=== PATIENT | female | born 1960 ===

== ENCOUNTER 2016-10-15 23:20 | Inpatient (IN) ==
--- NOTE | 2016-10-15 23:52 | Emergency Department Note ---
Arrival - Arrival Chief Complaint: Upper Respiratory ED Nursing Triage Note: C/O Nonproductive cough/low grade fever. Onset last week "sometime" Pt was transferred from [facility] for further evaluation/admission for pneumonia Mode of Arrival: Stretcher Source: Patient Time Seen by Provider: 10/15/16 23:49 - History of Present Illness HPI Narrative: This 55-year-old female presents with a one-month history of dry cough that was nonproductive without chills or fever. The patient also denies any night sweats, hemoptysis, or weight loss. She was seen today at [facility] where she presented with persistent cough and weakness after being begun on antibiotics as an outpatient 4 days previously for perceived pneumonia. At [facility] she revealed a right upper lobe mass with postobstructive pneumonia and for that reason was transferred here for further workup. Currently patient is in stable condition. Onset (ago): month(s) (Patient presents 1 month post onset of symptoms) Date of Last Menstrual Period: Hysterectomy Allergies/Adverse Reactions: Allergies Allergy/AdvReac Type Severity Reaction Status Date / Time hydrocodone Allergy Intermediate RASH Verified 10/15/16 23:25 levofloxacin [From Levaquin] Allergy Intermediate RASH Verified 10/15/16 23:25 Home Medications: Home Medications Medication Instructions Recorded Confirmed Type Clopidogrel [Plavix] 75 mg PO DAILY 10/15/16 10/15/16 History Insulin Detemir [Levemir] 50 unit SUBCUT BEDTIME 10/15/16 10/15/16 History Lisinopril 20 mg PO DAILY 10/15/16 10/15/16 History Simvastatin 20 mg PO DAILY 10/15/16 10/15/16 History glipiZIDE [Glipizide Xl] 10 mg PO DAILY 10/15/16 10/15/16 History Review of System - Review of System 12 point system: reviewed and no additional remarkable complaints except as stated - Review of System Constitutional: Present: as per HPI Respiratory: Present: as per HPI Medical,Surgical,& Family Hx - Medical History Cardio: History of: Hypertension - Social History Smoking Status: Never smoker Frequency of Alcohol Use: None Type of Drug Use: None Exam Physical Examination: GENERAL: Well developed, well nourished [place] female in no acute distress. HEENT: Normocephalic. No trauma. Moist mucous membranes. EOMI. PERRLA. ENT NML NECK: Supple. No adenopathy. CARDIAC: Regular. No murmurs. Heart rate 93 CHEST: Expiratory rhonchi anteriorly. No respiratory distress. O2 sat 90% ABDOMEN: Soft. Nontender. Active bowel sounds. EXTREMITIES: No trauma. Normal ROM. No pedal edema. SKIN: No diaphoresis. No rash. NEURO: Alert. Neuro intact no focal deficits. Vital Signs: Vital Signs Temperature 99.1 F 10/15/16 23:20 Pulse Rate 89 10/15/16 23:41 Respiratory Rate 20 10/15/16 23:41 Blood Pressure 136/69 10/15/16 23:41 O2 Sat by Pulse Oximetry 98 10/15/16 23:41 Course - Reevaluation(s) Reevaluation #1: Patient expectant of admission - Consultations Consultation #1: Discussed with hospitalist service who will admit for further evaluation and treatment. Results - Labs Labs: Lab per [facility] hematocrit 33, white count 10,300 sodium 137, potassium 5.1, creatinine 1.9, BUN 27, glucose 201 - Diagnostic Findings Procedure: Chest x-ray: image reviewed by me, report reviewed by me (Per [facility] is a masslike area of increased density in the right upper lobe medially adjacent to the mediastinum and abutting the pleura), CT - chest: image reviewed by me, report reviewed by me (Medial right upper lobe apical paramediastinal density, lung carcinoma versus pneumonia) Disposition Clinical Impression: Right upper lobe mass Case discussed with: patient, patient's family Disposition: Still a Patient Condition: Guarded Time of Disposition: 23:58
[2016-10-16] MEDS ORDERED: GLUCAGON 1 MG VIAL IM PRN (00:26)
[2016-10-16] MEDS ORDERED: ALBUTEROL/IPRATROPIUM 3 ML NEB RESP TX PRN ×2 (00:26→17:52)
[2016-10-16] MEDS ORDERED: DEXTROSE 50% 25 GM/50 ML SYRINGE IV PRN (00:26)
--- NOTE | 2016-10-16 00:36 | Hospitalist History & Physical ---
Assessment and Plan (1) Pneumonia Status: Acute Current Visit: Yes (2) Lung mass Status: Acute Current Visit: Yes (3) Diabetes Status: Acute Current Visit: Yes (4) Hypertension Status: Acute Assessment and plan: Our plan for this patient will be admitting her to our service started on IV antibiotics patient has a allergy to penicillin and Levaquin. Continue home meds as appropriate. Monitor her sugars before meals and at bedtime. Will consult pulmonary in the morning for their evaluation. Check a chest x-ray in the morning. Current Visit: Yes History of Present Illness Chief complaint: Shortness of breath History of present illness: Ms. Irwin is a 55 year old female with past medical history significant for diabetes and hypertension who is in normal state of health for the past week. Patient developed a cough and shortness of breath and went to [facility]. She was prescribed p.o. doxycycline and sent home. She returned a few days later with the same complaints. Subsequently had a CT scan that showed a masslike area of increased density in the right upper lobe medially adjacent to the mediastinum abutting the pleura. There was some air bronchograms within the mass and a patchy increased density in the adjacent lung parenchymal. Patient was subsequently sent to our hospital for further evaluation I was consulted to admit her through the emergency room. Home Medications Medication Instructions Recorded Confirmed Type Clopidogrel [Plavix] 75 mg PO DAILY 10/15/16 10/15/16 History Insulin Detemir [Levemir] 50 unit SUBCUT BEDTIME 10/15/16 10/15/16 History Lisinopril 20 mg PO DAILY 10/15/16 10/15/16 History Simvastatin 20 mg PO DAILY 10/15/16 10/15/16 History glipiZIDE [Glipizide Xl] 10 mg PO DAILY 10/15/16 10/15/16 History Allergies Allergy/AdvReac Type Severity Reaction Status Date / Time hydrocodone Allergy Intermediate RASH Verified 10/15/16 23:25 levofloxacin [From Levaquin] Allergy Intermediate RASH Verified 10/15/16 23:25 Medical,Surgical,& Family Hx - Medical History Cardio: History of: Hypertension - Surgical History Reproductive Surgeries: Surgical HX of;: Hysterectomy - Family History Family History: Reports;: Family Diabetes, Family Stroke - Social History Smoking Status: Never smoker Frequency of Alcohol Use: None Type of Drug Use: None 12 point system: reviewed and no additional remarkable complaints except as stated Exam - Constitutional Vitals: Period Temp Pulse Resp BP Sys/Blood Pulse Ox Last 24 Hr 99.1 F-99.1 F 89-93 18-20 123-136/67-69 90-99 General appearance: normal weight - Head Head exam: Present: normal inspection - Eye Eye exam: Present: EOMI Pupils: Present: TG - ENT ENT exam: Present: normal exam - Neck Neck exam: Present: normal inspection - Respiratory Respiratory exam: Present: clear to auscultation bilaterally - Cardiovascular Cardiovascular exam: Present: regular rate and rhythm - GI/Abdominal GI/Abdominal exam: Present: normal bowel sounds - Extremities Exam Extremities exam: Present: normal inspection - Back Exam Back exam: Present: normal inspection - Neurological Exam Neurological exam: Present: alert, oriented X3 - Psychiatric Psychiatric exam: Present: normal affect, normal mood - Skin Skin exam: Present: normal color Results - Labs Labs: Labs from [facility] displayed white count of 10.3 hemoglobin 10.7 hematocrit 33.7 platelets 46 BUN 27 include sodium 137 potassium 5.1 bicarb 29.3 total protein is 8.3 albumin 2.2 total bili 0.1 alk phos 163 SGOT 34 SGPT 26 glucose 201 calcium 8.4 chloride 101 creatinine 1.9 lactate acid 1.2 chest x- ray mediastinal right upper lobe a couple paramediastinal increased density lung carcinoma versus pneumonia CT scan showed a medial right upper lobe paramediastinal mass with patchy adjacent parenchymal densities some of which represent may represent pneumonia although suspicious for lung carcinoma
[2016-10-16] MEDS: SODIUM CHLORIDE 0.9% 1,000 ML IV SCH ×2 (02:10→17:04)
[2016-10-16] MEDS ORDERED: AZITHROMYCIN INJ 500 MG in SODIUM CHLORIDE 0.9% 250 ML IV SCH (03:00)
--- NOTE | 2016-10-16 07:53 | XRay Report ---
History short of breath Comparison 10/14/2016 The heart is at the upper range normal in size The lungs are under aerated 6 cm rounded the density in the is superior medial right lung apex appears to be more prominent than on the prior study although some of this could be due to differences in technique. no new areas of more focal consolidation on the left seen. Impression: 1. Apparent increase in right apical mass or rounded consolidated infiltrate could be due to differences in positioning. Close clinical correlation and short-term follow-up is necessary 2. Mildly increasing hypoaeration changes in the lung bases PROCEDURE INTERPRETED AT [facility] DEPARTMENT OF RADIOLOGY Final Report Signed by: Dr. Delma Mendieta
[2016-10-16 07:56] LABS: Basophils % 0.3 % (0.0-0.8); Eosinophils # 0.2 10*3/uL (0.0-0.87); Eosinophils % 2.5 % (0.00-10.9); Hematocrit 30.5 VOL% (35.7-47.0); Immature Granulocytes % 0.3 %; Immature Granulocytes Absolute 0.03 #; Lymphocytes # 2.2 10*3/uL (1.4-4.0); Lymphocytes % 23.2 % (21.3-54.2); Mean Corpuscular HGB Conc 32.8 GM/DL (32-36); Mean Corpuscular Hemoglobin 29 PG (27-34); Mean Corpuscular Volume 88.9 FL (87-102); Monocytes # 0.8 10*3/uL (0.11-0.8); Monocytes % 8.2 % (1.7-12.7); Neutrophils # 6.2 10*3/uL (1.4-7.4); Neutrophils % 65.5 % (38.7-73.9); Platelet Count 471 T/CUMM (130-400); Red Blood Count 3.43 MC/CUMM (3.8-5.5); Red Cell Distribution Width 12.2 % (9.3-17.3); White Blood Count 9.5 T/CUMM (4-12)
[2016-10-16 08:35] LABS: Bilirubin,Total 0.4 MG/DL (0.2-1.0); Calcium 7.8 MG/DL (8.5-10.1); Osmolality,Calculated 284.5 MOS/KG (273-304); Potassium 4.8 MMOL/L (3.5-5.1); Total Protein 6.4 G/DL (6.4-8.3)
[2016-10-16] MEDS: INSULIN REGULAR 100 UNIT/ML SUBCUT SCH ×4 (09:22→22:07)
[2016-10-16] MEDS: SIMVASTATIN 20 MG TABLET PO SCH (10:35)
[2016-10-16] MEDS: LISINOPRIL 20 MG TABLET PO SCH (10:35)
[2016-10-16] MEDS: CLOPIDOGREL 75 MG TABLET PO SCH (10:35)
[2016-10-16] MEDS: ACETAMINOPHEN 325 MG TABLET PO PRN (17:04)
--- NOTE | 2016-10-16 18:05 | Pulmonology Consult Note ---
History of Present Illness Chief complaint: RUL mass versus infiltrate History of present illness: Ms. Irwin is a 55 year old [place] female whom I been asked to see in pulmonary consultation. This lady is only a fair historian. She was originally hospitalized to [place] with hypoglycemia. She was found to have a right upper lung pneumonia and she was treated with antibiotics and then discharged and given doxycycline and told that she could go back to work in 2 days. She is a dispatcher. She went back to work and felt terrible but hung in there. She had problems with her sugar again and return to [place] help and was eventually transferred here for further evaluation and treatment. She had had a CT of the chest. This patient says that she was in good health prior to the episodes of hypoglycemia. She did not have a cough but she now has a nonproductive cough she does not think she has had fever and chills. The remainder of the review of systems is negative Allergies. Hydrocodone, Levaquin. Both drugs caused rash. Home medicines. Plavix 75 mg daily Levemir insulin 50 units subcu at bedtime. Lisinopril 20 mg daily simvastatin 20 mg daily and glipizide XL 10 mg Past history. High blood pressure. Insulin-dependent diabetes mellitus. High blood pressure. Hyperlipidemia. Carotid artery disease. She said Dr. Demetrius Awad found a bruit in her left carotid artery. She was subsequently referred to Dr. Garrison Garces who treated this with Plavix and felt that this could be watched and he has schedule her for follow-up. Surgical history. Total abdominal hysterectomy by Dr. Ang Social history. The patient never smoked. She does not use alcohol. She works as a dispatcher Family history. Positive for diabetes and strokes Chest x-ray. My impression. Heart size is normal. There is no hilar adenopathy. Pulmonary arteries are normal. There is a right upper lung mass versus an infiltrate with air bronchograms. This is pancaked against the mediastinum. CT of the chest. My impression. Right upper lung dense infiltrate versus a mass with air bronchograms. There is some surrounding faint areas of infiltrate. CT arteriograms of the neck done 03/03/2016 showed. 1. No evidence of significant stenosis or atherosclerotic disease within either of the internal carotid arteries. 2. Incidental moderate to severe stenosis at the proximal left external carotid artery. 3. Nonspecific noncalcified 0.7 cm nodule within the right upper lung. Although this may be post infectious/inflammatory or evidence of prior granulomatous disease, there is no prior for comparison, and malignancy is not excluded. Consider a short followup dedicated chest CT with IV contrast in 2-3 months to assess for stability. I have reviewed this film. This nodule is peripheral in the lesion we are concerned about his medial. I did not think these are related. White blood cell count is 9565.5 623.2 lymphocytes. H&H is 10.0/30.5 with normal indices and red blood cell distribution with. Platelets are 471,000. Electrolytes are normal. Creatinine is elevated at 1.60 with a BUN of 26. Liver function tests are normal except for a mild elevation of alkaline Ed[place] 149. Total protein is low normal at 6.4 albumin is low at 2.0 and globulins are 4.4 Physical exam. Vital signs. See below. Afebrile Psychiatric. Oriented 3. Cooperative. Fair historian. General. No distress. Comfortable. Has to suppress cough. Face. Symmetrical. No edema of the lips or tongue. Neck. Symmetrical. No meningismus. Lymphatics. No submandibular cervical supraclavicular or epitrochlear adenopathy. Neurologic. Cranial nerves are intact. Long track motor functions intact. Sensory exam was not done. Gait was not tested. Chest. Clear. Patient has to suppress the urge to cough when she takes a deep breath and when she exhales forcefully. Heart. No murmur rub or gallop Abdomen. Nondistended. Positive bowel sounds and rectal deferred Extremities. No clubbing and no edema Venous exam of the neck upper extremities lower extremities are normal. Arterial. Carotids are decreased especially on the left. Upper extremity pulses are palpable. Lower extremity pulses were not palpable. No evidence of lower extremity ischemia. Skin. No cancers or infectious lesions of the face hands or lower extremities. No other areas were examined. The remainder the physical exam is noncontributory. Impression. 1. Past history of 0.7 cm peripheral nodule in right upper lung. Do not believe this is related to patient's present problem 2. Right upper lung medial dense infiltrate versus mass with air bronchograms. 3. History of external carotid artery lesions. Taking Plavix to treat this. Previous evaluation by Dr. Stockton 4. Insulin-dependent diabetes mellitus 5. High blood pressure 6. Hyperlipidemia Plan. 1. We will hold Plavix for 5 days. If the lesion in the right upper lung has not resolved we will evaluate patient with fiberoptic bronchoscopy under fluoroscopy. That will be next Thursday. 2. Meropenem. Cleocin. 3. Cold agglutinins. 4. Legionella titer 5. Sputum for Gram stain culture and sensitivity 6. Follow-up chest x-ray on Thursday and Thursday 7. QuantiFERON 8. Mucinex 600 mg p.o. twice daily 9. Tessalon Perles to help suppress nonproductive cough 10. Carotid ultrasounds 11. Inhalation therapy Home Medications Medication Instructions Recorded Confirmed Type Clopidogrel [Plavix] 75 mg PO DAILY 10/15/16 10/15/16 History Insulin Detemir [Levemir] 50 unit SUBCUT BEDTIME 10/15/16 10/15/16 History Lisinopril 20 mg PO DAILY 10/15/16 10/15/16 History Simvastatin 20 mg PO DAILY 10/15/16 10/15/16 History glipiZIDE [Glipizide Xl] 10 mg PO DAILY 10/15/16 10/15/16 History Allergies Allergy/AdvReac Type Severity Reaction Status Date / Time hydrocodone Allergy Intermediate RASH Verified 10/15/16 23:25 levofloxacin [From Levaquin] Allergy Intermediate RASH Verified 10/15/16 23:25 Exam (Pulmonay) H&P - Constitutional Vitals: Period Temp Pulse Resp BP Sys/Blood Pulse Ox Last 24 Hr 96.3 F-99.1 F 78-94 16-22 113-143/66-78 90-99 Medical,Surgical,& Family Hx - Medical History Cardio: History of: Hypertension Endocrine: History of: Diabetes Mellitus (IDDM) Respiratory: History of: Pneumonia - Surgical History Reproductive Surgeries: Surgical HX of;: Hysterectomy - Family History Family History: Reports;: Family Diabetes, Family Stroke - Social History Smoking Status: Never smoker Frequency of Alcohol Use: None Type of Drug Use: None Results - Labs CBC & BMP: 10/16/16 07:11 10/16/16 07:11
[2016-10-16] MEDS: ALBUTEROL/IPRATROPIUM 3 ML NEB RESP TX SCH (19:25)
[2016-10-16] MEDS: CLINDAMYCIN INJ 300 MG in PREMIX 1 EACH IV SCH (20:59)
[2016-10-16] MEDS: BENZONATATE 100 MG CAPSULE PO SCH (20:59)
[2016-10-16] MEDS: MEROPENEM 1,000 MG in SODIUM CHLORIDE 0.9% 100 ML IV SCH (21:43)
[2016-10-17] MEDS: ALBUTEROL/IPRATROPIUM 3 ML NEB RESP TX SCH ×4 (01:11→19:20)
[2016-10-17] MEDS: CLINDAMYCIN INJ 300 MG in PREMIX 1 EACH IV SCH ×4 (01:20→20:55)
[2016-10-17 06:26] LABS: Calcium 7.9 MG/DL (8.5-10.1); Magnesium 1.9 MG/DL (1.8-2.4); Osmolality,Calculated 281.4 MOS/KG (273-304); Potassium 4.7 MMOL/L (3.5-5.1)
[2016-10-17] MEDS: INSULIN REGULAR 100 UNIT/ML SUBCUT SCH ×4 (08:02→20:56)
--- NOTE | 2016-10-17 08:08 | Ultrasound Report ---
History is coronary artery disease Grayscale, spectral Doppler, and color flow analysis performed and interpreted There is a mild amount of soft plaque in the proximal right ICA and moderate soft and partially calcified plaque on the left Maximum systolic velocities are 88 on the right and 169 on the left Peak systolic ratios are 1.0 on the right and 1.8 on the left. There is mild spectral broadening on the left. There is antegrade flow in both vertebral arteries NASCET criteria utilized Impression: 1. Findings very weakly suggestive of a 50-60% diameter stenosis on the left. Correlation with MRA suggested 2. Less than 50% diameter stenosis the proximal right ICA PROCEDURE INTERPRETED AT [facility] DEPARTMENT OF RADIOLOGY Final Report Signed by: Dr. Delma Mendieta
[2016-10-17] MEDS: SODIUM CHLORIDE 0.9% 1,000 ML IV SCH ×2 (09:35→20:57)
[2016-10-17] MEDS: LISINOPRIL 20 MG TABLET PO SCH (09:36)
[2016-10-17] MEDS: BENZONATATE 100 MG CAPSULE PO SCH ×3 (09:36→20:53)
--- NOTE | 2016-10-17 09:54 | XRay Report ---
XR chest 2V Indication: Pneumonia versus mass. Chest 2 views: Comparison yesterday shows continued opacification of the right pulmonary apex. Lungs are somewhat better inflated but there is persistent mild hypoinflation present. Right perihilar atelectasis, normal heart size and mediastinal contour stable. Impression: Persistent opacification right pulmonary apex, either infection or mass. PROCEDURE INTERPRETED AT [facility] DEPARTMENT OF RADIOLOGY Final Report Signed by: Gilbert Grier M.D.
[2016-10-17] MEDS: MEROPENEM 1,000 MG in SODIUM CHLORIDE 0.9% 100 ML IV SCH ×2 (10:00→21:44)
[2016-10-17] MEDS: SIMVASTATIN 20 MG TABLET PO SCH (10:43)
--- NOTE | 2016-10-17 11:18 | Pulmonology Progress Note ---
Pulmonary - PN: Subj Interval history: Doe Alvarado, [facility] acting as scribe for Dr. Ari Sandhu Ms. Irwin is a 55-year-old female who we saw in initial pulmonary consultation on 10/16/2016. At that time, our impressions were: 1. Past history of 0.7 cm peripheral nodule in right upper lung. Do not believe this is related to patient's present problem 2. Right upper lung medial dense infiltrate versus mass with air bronchograms. 3. History of external carotid artery lesions. Taking Plavix to treat this. Previous evaluation by Dr. Stockton 4. Insulin-dependent diabetes mellitus 5. High blood pressure 6. Hyperlipidemia 10/17/2016. Ms. Irwin was seen today along with Ozzie Chong RN. Patient's chest x-ray shows that her presumed right upper lung abnormality appears to be improving. This highly favors it being a pneumonia. Nonetheless, she is scheduled for fiberoptic bronchoscopy on Thursday. Her Plavix is on hold in anticipation of this. She is scheduled for repeat chest x-ray on Thursday. Cold agglutinins are negative. Legionella is pending. She is afebrile. Carotid ultrasound done 10/17/2016 showed findings very weakly suggestive of 50-60% diameter stenosis on the left and less than 50% diameter stenosis of the right proximal ICA. MRA was suggested for correlation of findings on the left. This is followed as an outpatient by Dr. Stockton. QuantiFERON is pending. Sputum for Gram stain, culture sensitivity is pending. Medications have been reviewed. We made no changes today. Labs been reviewed. Creatinine 1.40, BUN 20, electrolytes are normal, calcium is low at 7.9. Vitamin D level has been ordered. Magnesium is normal at 1.9. Exam (Progress Note) - Constitutional Vitals: Period Temp Pulse Resp BP Sys/Blood Pulse Ox Last 24 Hr 96.3 F-97.7 F 74-85 18-20 110-143/51-76 96-99 Exam: Chest is clear Heart no gallop Abdomen is nontender and nondistended; bowel sounds positive 4 Lower extremities with nothing to suggest acute deep venous thrombophlebitis Psychiatric oriented 3 Neurologic long-term motor function is intact Plan: Continue present treatment. Chest x-ray on Thursday. Follow-up bronchoscopy scheduled for Thursday. Continue to hold Plavix. Vitamin D level. Follow-up QuantiFERON when available. Follow-up sputum culture and Gram stain when available. See orders. Results - Labs CBC & BMP: 10/16/16 07:11 10/17/16 04:43
[2016-10-17] MEDS: LACTULOSE 20 GM/30 ML UDCUP PO SCH ×3 (12:20→20:55)
--- NOTE | 2016-10-17 15:38 | Hospitalist Progress Note ---
Assessment and Plan (1) Pneumonia Status: Acute Assessment and plan: Appears to be improving. Current Visit: Yes Qualifiers: Pneumonia type: due to unspecified organism Laterality: right Lung location: upper lobe of lung Qualified Code(s): J18.1 - Lobar pneumonia, unspecified organism (2) Lung mass Status: Acute Assessment and plan: Continue to monitor closely with pulmonology. On follow-up x-rays appears that the lesion is getting better which suggest this may be in some type of evidence of infectious process is going on. Continuing to monitor. Current Visit: Yes (3) Diabetes Status: Chronic Current Visit: Yes Qualifiers: Diabetes mellitus type: type 2 (4) Hypertension Status: Chronic Current Visit: Yes Qualifiers: Hypertension type: essential hypertension Qualified Code(s): I10 - Essential (primary) hypertension Hospitalist: Subjective Interval history: The patient is resting comfortably in no acute changes. The chest x-ray findings are improving. No fevers or chills. Exam - Constitutional Vitals: Period Temp Pulse Resp BP Sys/Blood Pulse Ox Last 24 Hr 97.1 F-98.1 F 74-101 18-22 110-143/51-84 96-99 General appearance: normal weight - Head Head exam: Present: normal inspection - ENT ENT exam: Present: normal exam - Respiratory Respiratory exam: Present: clear to auscultation bilaterally - Cardiovascular Cardiovascular exam: Present: regular rate and rhythm - GI/Abdominal GI/Abdominal exam: Present: normal bowel sounds - Extremities Exam Extremities exam: Present: normal inspection - Neurological Exam Neurological exam: Present: alert, oriented X3 - Psychiatric Psychiatric exam: Present: normal affect Results - Labs CBC & BMP: 10/16/16 07:11 10/17/16 04:43
[2016-10-17] MEDS: ACETAMINOPHEN 325 MG TABLET PO PRN (20:54)
[2016-10-17] MEDS: DOCUSATE SODIUM 100 MG CAPSULE PO SCH (20:55)
[2016-10-18] MEDS: ALBUTEROL/IPRATROPIUM 3 ML NEB RESP TX SCH ×4 (00:40→20:20)
[2016-10-18] MEDS: LACTULOSE 20 GM/30 ML UDCUP PO SCH (00:45)
[2016-10-18] MEDS: CLINDAMYCIN INJ 300 MG in PREMIX 1 EACH IV SCH ×4 (02:30→23:11)
[2016-10-18 06:42] LABS: Basophils % 0.3 % (0.0-0.8); Eosinophils # 0.3 10*3/uL (0.0-0.87); Hematocrit 30.9 VOL% (35.7-47.0); Immature Granulocytes % 0.5 %; Immature Granulocytes Absolute 0.07 #; Lymphocytes # 2.1 10*3/uL (1.4-4.0); Lymphocytes % 16.6 % (21.3-54.2); Mean Corpuscular HGB Conc 32.4 GM/DL (32-36); Mean Corpuscular Hemoglobin 29 PG (27-34); Mean Corpuscular Volume 90.4 FL (87-102); Mean Platelet Volume 9.5 FL (9.6-12.0); Monocytes # 0.9 10*3/uL (0.11-0.8); Monocytes % 6.7 % (1.7-12.7); Neutrophils # 9.4 10*3/uL (1.4-7.4); Neutrophils % 73.9 % (38.7-73.9); Platelet Count 464 T/CUMM (130-400); Red Blood Count 3.42 MC/CUMM (3.8-5.5); Red Cell Distribution Width 12.1 % (9.3-17.3); White Blood Count 12.7 T/CUMM (4-12)
[2016-10-18 07:25] LABS: Calcium 7.9 MG/DL (8.5-10.1); Osmolality,Calculated 281.3 MOS/KG (273-304)
[2016-10-18] MEDS ORDERED: AZITHROMYCIN 250 MG TABLET PO SCH (09:00)
[2016-10-18] MEDS: MEROPENEM 1,000 MG in SODIUM CHLORIDE 0.9% 100 ML IV SCH ×2 (09:32→20:16)
[2016-10-18] MEDS: INSULIN REGULAR 100 UNIT/ML SUBCUT SCH ×4 (09:32→21:03)
[2016-10-18] MEDS: LISINOPRIL 20 MG TABLET PO SCH ×2 (09:34→20:17)
[2016-10-18] MEDS: SIMVASTATIN 20 MG TABLET PO SCH (09:35)
[2016-10-18] MEDS: BENZONATATE 100 MG CAPSULE PO SCH ×3 (09:35→20:17)
[2016-10-18] MEDS: DOCUSATE SODIUM 100 MG CAPSULE PO SCH ×2 (09:37→20:14)
--- NOTE | 2016-10-18 10:54 | Pulmonology Progress Note ---
Pulmonary - PN: Subj Interval history: This is a 55-year-old lady that had a right upper lobe opacity on her x-ray. Looks like it is going to be pneumonia. Dr. Hemphill plans to do bronchoscopy Thursday to be sure there is not an underlying mass there. Patient feels better today. Still coughing up some phlegm. No fever. Exam (Progress Note) - Constitutional Vitals: Period Temp Pulse Resp BP Sys/Blood Pulse Ox Last 24 Hr 98.0 F-99.0 F 90-101 18-22 132-161/59-89 95-100 Exam: Patient's afebrile. Alert oriented. Vital signs normal. Pupils react to light. Throat is clear. Neck is supple. Chest reveals a few rales and rhonchi on the right upper lobe. Otherwise lungs clear. Heart normal rate and rhythm no murmurs. Abdomen soft nontender no masses. Extremities no clubbing cyanosis or edema. Calves nontender. Results - Labs CBC & BMP: 10/18/16 06:12 10/18/16 06:12 Lab Results: I have reviewed the past 24 hour labs Assessment and Plan (1) Pneumonia Status: Acute Assessment and plan: It appears that she has a right upper lobe pneumonia. Certainly there could be an underlying mass. Continuing with antibiotics. Plans are for bronchoscopy in a few days. Current Visit: Yes Qualifiers: Pneumonia type: due to unspecified organism Laterality: right Lung location: upper lobe of lung Qualified Code(s): J18.1 - Lobar pneumonia, unspecified organism (2) Lung mass Status: Acute Assessment and plan: Questionable whether there is truly a mass or just consolidated lung. Further evaluation in progress. Current Visit: Yes (3) Diabetes Status: Chronic Assessment and plan: Glucoses well controlled. Current Visit: Yes Qualifiers: Diabetes mellitus type: type 2 (4) Hypertension Status: Chronic Assessment and plan: Systolic blood pressure in the 150s. Fair control. Current Visit: Yes Qualifiers: Hypertension type: essential hypertension Qualified Code(s): I10 - Essential (primary) hypertension
--- NOTE | 2016-10-18 11:40 | Hospitalist Progress Note ---
Assessment and Plan (1) Pneumonia Status: Acute Assessment and plan: She continues on intravenous meropenem and clindamycin. Current Visit: Yes Qualifiers: Pneumonia type: due to unspecified organism Laterality: right Lung location: upper lobe of lung Qualified Code(s): J18.1 - Lobar pneumonia, unspecified organism (2) Lung mass Status: Acute Assessment and plan: She is to undergo bronchoscopy next week for evaluation of right upper lobe lung mass. Current Visit: Yes (3) Diabetes Status: Chronic Assessment and plan: Her glucose today is 194. She continues treatment with sliding scale insulin coverage. Current Visit: Yes Qualifiers: Diabetes mellitus type: type 2 (4) Hypertension Status: Chronic Assessment and plan: Her blood pressure today is 157/89. She continues on her same medications. Current Visit: Yes Qualifiers: Hypertension type: essential hypertension Qualified Code(s): I10 - Essential (primary) hypertension Hospitalist: Subjective Interval history: Patient has a right upper lobe lung mass. It is unclear if this is pneumonia or cancer with postobstructive pneumonia. She continues on intravenous antibiotics. She is scheduled to undergo bronchoscopy next week. Exam - Constitutional Vitals: Period Temp Pulse Resp BP Sys/Blood Pulse Ox Last 24 Hr 98.0 F-99.0 F 90-101 18-22 132-161/59-89 95-100 General appearance: no acute distress - Head Head exam: Present: normal inspection - Neck Neck exam: Present: normal inspection - Respiratory Respiratory exam: Present: clear to auscultation bilaterally - Cardiovascular Cardiovascular exam: Present: regular rate and rhythm - GI/Abdominal GI/Abdominal exam: Present: normal bowel sounds, soft, other (Nontender with no palpable masses or hepatosplenomegaly.) - Extremities Exam Extremities exam: Present: normal inspection - Neurological Exam Neurological exam: Present: alert, oriented X3 - Skin Skin exam: Present: normal color, warm, intact Results - Labs CBC & BMP: 10/18/16 06:12 10/18/16 06:12
[2016-10-18] MEDS: SODIUM CHLORIDE 0.9% 1,000 ML IV SCH ×2 (11:45→17:17)
[2016-10-18] MEDS: BISACODYL 5 MG TABLET PO PRN (14:36)
[2016-10-18] MEDS: ACETAMINOPHEN 325 MG TABLET PO PRN (19:37)
[2016-10-19] MEDS: SODIUM CHLORIDE 0.9% 1,000 ML IV SCH ×2 (00:12→10:46)
[2016-10-19] MEDS: ALBUTEROL/IPRATROPIUM 3 ML NEB RESP TX SCH ×4 (02:22→19:29)
[2016-10-19] MEDS: CLINDAMYCIN INJ 300 MG in PREMIX 1 EACH IV SCH ×3 (04:43→16:13)
[2016-10-19] MEDS: SIMVASTATIN 20 MG TABLET PO SCH (08:41)
[2016-10-19] MEDS: LISINOPRIL 20 MG TABLET PO SCH ×2 (08:41→20:46)
[2016-10-19] MEDS: INSULIN REGULAR 100 UNIT/ML SUBCUT SCH ×4 (08:42→20:50)
[2016-10-19] MEDS: BENZONATATE 100 MG CAPSULE PO SCH ×3 (08:42→20:46)
[2016-10-19] MEDS: DOCUSATE SODIUM 100 MG CAPSULE PO SCH ×2 (08:42→20:50)
[2016-10-19] MEDS: MEROPENEM 1,000 MG in SODIUM CHLORIDE 0.9% 100 ML IV SCH ×2 (08:43→20:47)
--- NOTE | 2016-10-19 10:45 | Pulmonology Progress Note ---
Pulmonary - PN: Subj Interval history: This is a 55-year-old lady that had a right upper lobe opacity on her x-ray. Looks like it is going to be pneumonia. Dr. Sandhu plans to do bronchoscopy Thursday to be sure there is not an underlying mass there. Patient feels better today. Still coughing up some phlegm. No fever. 10/19/2016 patient feeling better. Still has a localized wheeze in the right upper lobe. Plans will be for bronchoscopy on Thursday. Exam (Progress Note) - Constitutional Vitals: Period Temp Pulse Resp BP Sys/Blood Pulse Ox Last 24 Hr 97.4 F-100.8 F 86-121 14-20 129-173/58-84 95-100 Exam: Patient's afebrile. Alert oriented. Vital signs normal. Pupils react to light. Throat is clear. Neck is supple. Chest reveals a few rales and rhonchi on the right upper lobe. I do hear a localized wheeze in the right upper lobe. Otherwise lungs clear. Heart normal rate and rhythm no murmurs. Abdomen soft nontender no masses. Extremities no clubbing cyanosis or edema. Calves nontender. Results - Labs CBC & BMP: 10/18/16 06:12 10/18/16 06:12 Lab Results: I have reviewed the past 24 hour labs Assessment and Plan (1) Pneumonia Status: Acute Assessment and plan: It appears that she has a right upper lobe pneumonia. Certainly there could be an underlying mass. Continuing with antibiotics. Plans are for bronchoscopy in a few days. 10/19/[address] Sandhu plans to do bronchoscopy to stay for evaluation of that area. Current Visit: Yes Qualifiers: Pneumonia type: due to unspecified organism Laterality: right Lung location: upper lobe of lung Qualified Code(s): J18.1 - Lobar pneumonia, unspecified organism (2) Lung mass Status: Acute Assessment and plan: Questionable whether there is truly a mass or just consolidated lung. Further evaluation in progress. Current Visit: Yes (3) Diabetes Status: Chronic Assessment and plan: Glucoses well controlled. 10/19/2016 glucoses a little bit low at times. Hospitalists are following that Current Visit: Yes Qualifiers: Diabetes mellitus type: type 2 (4) Hypertension Status: Chronic Assessment and plan: Systolic blood pressure in the 150s. Fair control. 10/19/2016 blood pressures are fairly well controlled. Current Visit: Yes Qualifiers: Hypertension type: essential hypertension Qualified Code(s): I10 - Essential (primary) hypertension
--- NOTE | 2016-10-19 13:01 | Hospitalist Progress Note ---
Assessment and Plan (1) Pneumonia Status: Acute Assessment and plan: Appears to be improving. Bronchoscope scheduled this week. Current Visit: Yes Qualifiers: Pneumonia type: due to unspecified organism Laterality: right Lung location: upper lobe of lung Qualified Code(s): J18.1 - Lobar pneumonia, unspecified organism (2) Lung mass Status: Acute Assessment and plan: Continue to monitor closely with pulmonology. On follow-up x-rays appears that the lesion is getting better which suggest this may be in some type of evidence of infectious process is going on. Continuing to monitor. Current Visit: Yes (3) Diabetes Status: Chronic Current Visit: Yes Qualifiers: Diabetes mellitus type: type 2 (4) Hypertension Status: Chronic Current Visit: Yes Qualifiers: Hypertension type: essential hypertension Qualified Code(s): I10 - Essential (primary) hypertension Hospitalist: Subjective Interval history: Patient is resting comfortably. No fevers or chills. Patient is scheduled to have a bronch this week. Sputum cultures have been negative thus far. Exam - Constitutional Vitals: Period Temp Pulse Resp BP Sys/Blood Pulse Ox Last 24 Hr 97.7 F-100.8 F 86-121 14-20 129-173/58-80 95-100 General appearance: normal weight - Head Head exam: Present: normal inspection - Eye Eye exam: Present: EOMI - Neck Neck exam: Present: normal inspection - Respiratory Respiratory exam: Present: clear to auscultation bilaterally - Cardiovascular Cardiovascular exam: Present: regular rate and rhythm - GI/Abdominal GI/Abdominal exam: Present: normal bowel sounds - Extremities Exam Extremities exam: Present: normal inspection - Neurological Exam Neurological exam: Present: alert, oriented X3, CN II-XII intact - Psychiatric Psychiatric exam: Present: normal affect Results - Labs CBC & BMP: 10/18/16 06:12 10/18/16 06:12
[2016-10-19] MEDS: ACETAMINOPHEN 325 MG TABLET PO PRN (20:00)
[2016-10-20] MEDS: SODIUM CHLORIDE 0.9% 1,000 ML IV SCH ×3 (00:50→17:31)
[2016-10-20] MEDS: CLINDAMYCIN INJ 300 MG in PREMIX 1 EACH IV SCH ×5 (00:51→22:43)
[2016-10-20] MEDS: ALBUTEROL/IPRATROPIUM 3 ML NEB RESP TX SCH ×4 (00:52→18:55)
[2016-10-20] MEDS: ACETAMINOPHEN 325 MG TABLET PO PRN ×2 (06:02→20:28)
[2016-10-20 06:12] LABS: INR 1.1; PT Patient Result 11.2 SECS
[2016-10-20 06:19] LABS: Partial Thromboplastin Time 49.9 SECS (0-40)
--- NOTE | 2016-10-20 08:30 | XRay Report ---
History: Abnormal chest x-ray. Pneumonia versus right upper lobe mass Date: 10/20/2016 Study: Chest x-ray PA and lateral Comparison exam: October 17, 2016 The cardiac silhouette is upper normal in size. There is no pulmonary vascular engorgement. There is no new mediastinal mass. The patchy and hazy right upper lobe pneumonia has mildly worsened. The lungs are otherwise unchanged. There is no gross pleural effusion. Osseous structures are unchanged. Impression: Worsening right upper lobe pneumonia compared to the previous study. Underlying mass cannot be excluded; radiographic follow-up to resolution is advised PROCEDURE INTERPRETED AT [facility] DEPARTMENT OF RADIOLOGY Final Report Signed by: Dr. Rowena Zaldivar
[2016-10-20] MEDS: DOCUSATE SODIUM 100 MG CAPSULE PO SCH ×2 (08:48→20:28)
[2016-10-20] MEDS: INSULIN REGULAR 100 UNIT/ML SUBCUT SCH ×4 (08:48→20:29)
[2016-10-20] MEDS: LISINOPRIL 20 MG TABLET PO SCH ×2 (08:49→20:28)
[2016-10-20] MEDS: BENZONATATE 100 MG CAPSULE PO SCH ×3 (08:49→20:28)
[2016-10-20] MEDS: SIMVASTATIN 20 MG TABLET PO SCH (08:49)
[2016-10-20] MEDS: MEROPENEM 1,000 MG in SODIUM CHLORIDE 0.9% 100 ML IV SCH ×2 (09:27→20:28)
[2016-10-20 09:32] LABS: Basophils % 0.2 % (0.0-0.8); Eosinophils # 0.4 10*3/uL (0.0-0.87); Eosinophils % 2.3 % (0.00-10.9); Hematocrit 27.6 VOL% (35.7-47.0); Hemoglobin 8.9 GM/DL (12.0-16.0); Immature Granulocytes % 0.6 %; Immature Granulocytes Absolute 0.09 #; Lymphocytes # 1.6 10*3/uL (1.4-4.0); Lymphocytes % 10.6 % (21.3-54.2); Mean Corpuscular HGB Conc 32.2 GM/DL (32-36); Mean Corpuscular Hemoglobin 29 PG (27-34); Mean Corpuscular Volume 89.3 FL (87-102); Mean Platelet Volume 10.1 FL (9.6-12.0); Monocytes # 0.9 10*3/uL (0.11-0.8); Monocytes % 5.6 % (1.7-12.7); Neutrophils # 12.5 10*3/uL (1.4-7.4); Neutrophils % 80.7 % (38.7-73.9); Platelet Count 436 T/CUMM (130-400); Red Blood Count 3.09 MC/CUMM (3.8-5.5); White Blood Count 15.4 T/CUMM (4-12)
[2016-10-20 09:46] LABS: Osmolality,Calculated 274.5 MOS/KG (273-304); Potassium 4.5 MMOL/L (3.5-5.1)
--- NOTE | 2016-10-20 11:02 | Pulmonology Progress Note ---
Pulmonary - PN: Subj Interval history: Doe Alvarado, [facility], acting as scribe for Dr. Ari Sandhu Ms. Irwin is a 55-year-old female who we saw in initial pulmonary consultation on 10/16/2016. At that time, our impressions were: 1. Past history of 0.7 cm peripheral nodule in right upper lung. Do not believe this is related to patient's present problem 2. Right upper lung medial dense infiltrate versus mass with air bronchograms. 3. History of external carotid artery lesions. Taking Plavix to treat this. Previous evaluation by Dr. Stockton 4. Insulin-dependent diabetes mellitus 5. High blood pressure 6. Hyperlipidemia 10/17/2016. Ms. Irwin was seen today along with Ozzie Chong RN. Patient's chest x-ray shows that her presumed right upper lung abnormality appears to be improving. This highly favors it being a pneumonia. Nonetheless, she is scheduled for fiberoptic bronchoscopy on Thursday. Her Plavix is on hold in anticipation of this. She is scheduled for repeat chest x-ray on Thursday. Cold agglutinins are negative. Legionella is pending. She is afebrile. Carotid ultrasound done 10/17/2016 showed findings very weakly suggestive of 50-60% diameter stenosis on the left and less than 50% diameter stenosis of the right proximal ICA. MRA was suggested for correlation of findings on the left. This is followed as an outpatient by Dr. Stockton. QuantiFERON is pending. Sputum for Gram stain, culture sensitivity is pending. Medications have been reviewed. We made no changes today. Labs been reviewed. Creatinine 1.40, BUN 20, electrolytes are normal, calcium is low at 7.9. Vitamin D level has been ordered. Magnesium is normal at 1.9. 10/20/2016. The patient was seen today along with Ozzie Chong RN. Last night the patient had a fever of 101.2. This is trended downward since that time. Chest x-ray today is fairly stable. She is plan for fiberoptic bronchoscopy tomorrow. Her Plavix has been on hold in anticipation of bronchoscopy. Overall , she is doing reasonably well. She has not been wanting to get out of bed. We discussed this with her today. Nursing staff has discussed this with her at length. Presently, she is sitting up in the chair at bedside. Cold agglutinins are negative. Legionella is pending. Sputum Gram stain showed few gram-positive cocci in clusters, few gram-positive cocci in pairs and chains, few gram-negative rods, and few gram-positive rods. Sputum culture, however, grew no organisms. QuantiFERON is still pending. Medications have been reviewed. We made no changes. Labs been reviewed. White count was 15,400 with 80.7% segs; H&H 8.9/27.6; platelet count 436,000; INR 1.1; creatinine 1.20, BUN 12, electrolytes are normal; vitamin D level is sufficient at 26.6 Exam (Progress Note) - Constitutional Vitals: Period Temp Pulse Resp BP Sys/Blood Pulse Ox Last 24 Hr 98.2 F-101.2 F 75-105 16-20 135-164/59-82 95-100 Exam: Chest is clear Heart no gallop Abdomen is nontender and nondistended; bowel sounds positive 4 Lower extremities with nothing to suggest acute deep venous thrombophlebitis Psychiatric oriented 3; somewhat flat affect Neurologic long-term motor function is intact Plan: Continue present treatment. Bronchoscopy scheduled for Thursday. Continue to hold Plavix. Follow-up QuantiFERON when available. See orders. Results - Labs CBC & BMP: 10/20/16 05:32 10/20/16 05:32
--- NOTE | 2016-10-20 11:38 | Hospitalist Progress Note ---
Assessment and Plan (1) Pneumonia Status: Acute Assessment and plan: continue with IV antibiotics For Bronch iin am, follow Pulm's recommendations Current Visit: Yes Qualifiers: Pneumonia type: due to unspecified organism Laterality: right Lung location: upper lobe of lung Qualified Code(s): J18.1 - Lobar pneumonia, unspecified organism (2) Lung mass Status: Acute Assessment and plan: Continue to monitor closely with pulmonology. On follow-up x-rays appears that the lesion is getting better which suggest this may be in some type of evidence of infectious process is going on. For Bronch in am Current Visit: Yes (3) Diabetes Status: Chronic Assessment and plan: continue with current regime, will get hbA1c level Current Visit: Yes Qualifiers: Diabetes mellitus type: type 2 (4) Hypertension Status: Chronic Assessment and plan: stable Current Visit: Yes Qualifiers: Hypertension type: essential hypertension Qualified Code(s): I10 - Essential (primary) hypertension Hospitalist: Subjective Interval history: Patient was sleepy, she complains of coughing up of whitish sputum. She spiked a temp of 101.2 yesterday. She is scheduled for a bronchoscopy in am. Exam - Constitutional Vitals: Period Temp Pulse Resp BP Sys/Blood Pulse Ox Last 24 Hr 98.2 F-101.2 F 75-105 16-20 135-164/59-82 95-100 General appearance: no acute distress - Head Head exam: Present: normal inspection - Respiratory Respiratory exam: Present: clear to auscultation bilaterally - Cardiovascular Cardiovascular exam: Present: regular rate and rhythm - GI/Abdominal GI/Abdominal exam: Present: normal bowel sounds - Extremities Exam Extremities exam: Present: normal inspection - Neurological Exam Neurological exam: Present: alert, oriented X3 Results - Labs CBC & BMP: 10/20/16 05:32 10/20/16 05:32 Lab Results: I have reviewed the past 24 hour labs
[2016-10-20 14:21] LABS: TB Ag minue Nil Result 0.01 IU/mL
[2016-10-21] MEDS: ALBUTEROL/IPRATROPIUM 3 ML NEB RESP TX SCH ×4 (00:30→19:07)
[2016-10-21] MEDS: CLINDAMYCIN INJ 300 MG in PREMIX 1 EACH IV SCH ×4 (05:25→22:10)
[2016-10-21] MEDS: SODIUM CHLORIDE 0.9% 1,000 ML IV SCH ×3 (05:27→20:27)
[2016-10-21 06:05] LABS: Basophils # 0.1 10*3/uL (0.0-0.2); Basophils % 0.3 % (0.0-0.8); Eosinophils # 0.4 10*3/uL (0.0-0.87); Eosinophils % 2.2 % (0.00-10.9); Hematocrit 26.2 VOL% (35.7-47.0); Hemoglobin 8.8 GM/DL (12.0-16.0); Immature Granulocytes % 0.6 %; Lymphocytes % 12.3 % (21.3-54.2); Mean Corpuscular HGB Conc 33.6 GM/DL (32-36); Mean Corpuscular Hemoglobin 30 PG (27-34); Mean Corpuscular Volume 88.5 FL (87-102); Mean Platelet Volume 10.1 FL (9.6-12.0); Monocytes % 6.4 % (1.7-12.7); Neutrophils # 12.4 10*3/uL (1.4-7.4); Neutrophils % 78.2 % (38.7-73.9); Platelet Count 432 T/CUMM (130-400); Red Blood Count 2.96 MC/CUMM (3.8-5.5); Red Cell Distribution Width 12.1 % (9.3-17.3); White Blood Count 15.8 T/CUMM (4-12)
[2016-10-21 06:23] LABS: INR 1.3; PT Patient Result 14.1 SECS
[2016-10-21 06:30] LABS: Partial Thromboplastin Time 56.2 SECS (0-40)
[2016-10-21] MEDS ORDERED: diphenhydrAMINE 50 MG/1 ML VIAL IM ONE (07:00)
[2016-10-21] MEDS ORDERED: MEPERIDINE 50 MG/1 ML VIAL IM ONE (07:00)
[2016-10-21] MEDS ORDERED: BENZONATATE 100 MG CAPSULE PO ONE (07:00)
[2016-10-21] MEDS ORDERED: LIDOCAINE 2% VISCOUS 100 ML BOTTLE SWISH/SPIT ONE (07:30)
[2016-10-21] MEDS ORDERED: LIDOCAINE 1% 20 ML VIAL MISC INJ ONE (07:30)
[2016-10-21] MEDS ORDERED: LIDOCAINE 2% 20 ML VIAL RESP TX ONE (07:30)
[2016-10-21] MEDS ORDERED: MIDAZOLAM 2 MG/2 ML VIAL ONE (07:58)
[2016-10-21] MEDS ORDERED: EPINEPHrine 1 MG/ML VIAL ET ONE (08:50)
[2016-10-21] MEDS ORDERED: EPINEPHrine 1 MG/ML VIAL ONE (09:26)
[2016-10-21] MEDS: INSULIN REGULAR 100 UNIT/ML SUBCUT SCH ×4 (10:25→20:24)
--- NOTE | 2016-10-21 11:05 | Event Note ---
In hospital diagnostic and therapeutic fiberoptic bronchoscopy under fluoroscopy. Right upper lung brushes 3 under fluoroscopy. Endobronchial biopsies from the right upper lung 3. Bronchoalveolar lavage of all 3 right upper lung segments. Specimens were sent for pathology, cytology, Gram stain, bacterial cultures, AFB stains and cultures and fungal stains and cultures. This patient presented with a right upper lung mass effect. This is mostly disappeared with treatment of pneumonia. Endobronchial obstruction suspected. Abnormal chest x-ray and abnormal CT of the chest. Small peripheral right upper lung nodule that is separate from the infiltrate and probably is not pathologic. For these reasons the patient's evaluated with fiberoptic bronchoscopy. Vocal cords were normal. Trachea was normal. The nakul was slightly splayed. There was erosive bronchitis in the left upper lung bronchus. See photograph #1 The right upper lung bronchus was erythematous edematous and friable and this involved all 3 subsegments of the right upper lung but was most prominent in the apical segment. There is a good bit of endobronchial edema producing partial stenosis. 3 brushes were obtained under fluoroscopy. These were obtained from the apical segment of the right upper lung. 3 biopsies were taken from the orifice of the apical segment of the right upper lung. Bronchoalveolar lavages were done from the anterior segment and apical segment in the posterior segment. There was a mild amount of bleeding which required dilute epinephrine and iced saline in order to control it. No endobronchial lesions suggestive of cancer was seen in either bronchial tree patient tolerated procedure well. Impression. 1. Resolving right upper lung pneumonia 2. Small peripheral nodule in the right upper lung. Probably benign 3. Erosive slightly edematous bronchitis in the right upper lung and to a lesser degree in the left upper lung. Organism undetermined. 4. Slight splaying of the trachea. Watch for lymphadenopathy. Plan. 1. Check bronchoscopy specimens 2. Follow-up chest X
--- NOTE | 2016-10-21 11:15 | Pulmonology Progress Note ---
Pulmonary - PN: Subj Interval history: Doe Alvarado, [facility], acting as scribe for Dr. Ari Sandhu Ms. Irwin is a 55-year-old female who we saw in initial pulmonary consultation on 10/16/2016. At that time, our impressions were: 1. Past history of 0.7 cm peripheral nodule in right upper lung. Do not believe this is related to patient's present problem 2. Right upper lung medial dense infiltrate versus mass with air bronchograms. 3. History of external carotid artery lesions. Taking Plavix to treat this. Previous evaluation by Dr. Stockton 4. Insulin-dependent diabetes mellitus 5. High blood pressure 6. Hyperlipidemia 10/17/2016. Ms. Irwin was seen today along with Ozzie Chong RN. Patient's chest x-ray shows that her presumed right upper lung abnormality appears to be improving. This highly favors it being a pneumonia. Nonetheless, she is scheduled for fiberoptic bronchoscopy on Thursday. Her Plavix is on hold in anticipation of this. She is scheduled for repeat chest x-ray on Thursday. Cold agglutinins are negative. Legionella is pending. She is afebrile. Carotid ultrasound done 10/17/2016 showed findings very weakly suggestive of 50-60% diameter stenosis on the left and less than 50% diameter stenosis of the right proximal ICA. MRA was suggested for correlation of findings on the left. This is followed as an outpatient by Dr. Stockton. QuantiFERON is pending. Sputum for Gram stain, culture sensitivity is pending. Medications have been reviewed. We made no changes today. Labs been reviewed. Creatinine 1.40, BUN 20, electrolytes are normal, calcium is low at 7.9. Vitamin D level has been ordered. Magnesium is normal at 1.9. 10/20/2016. The patient was seen today along with Ozzie Chong RN. Last night the patient had a fever of 101.2. This is trended downward since that time. Chest x-ray today is fairly stable. She is plan for fiberoptic bronchoscopy tomorrow. Her Plavix has been on hold in anticipation of bronchoscopy. Overall , she is doing reasonably well. She has not been wanting to get out of bed. We discussed this with her today. Nursing staff has discussed this with her at length. Presently, she is sitting up in the chair at bedside. Cold agglutinins are negative. Legionella is pending. Sputum Gram stain showed few gram-positive cocci in clusters, few gram-positive cocci in pairs and chains, few gram-negative rods, and few gram-positive rods. Sputum culture, however, grew no organisms. QuantiFERON is still pending. Medications have been reviewed. We made no changes. Labs been reviewed. White count was 15,400 with 80.7% segs; H&H 8.9/27.6; platelet count 436,000; INR 1.1; creatinine 1.20, BUN 12, electrolytes are normal; vitamin D level is sufficient at 26.6 10/21/2016. Patient was seen today along with Tessa Hatfield RN. Earlier today, the patient underwent fiberoptic bronchoscopy. This showed a resolving right upper lung pneumonia, small peripheral nodule in the right upper lung, erosive slightly edematous bronchitis in the right upper lung and to a lesser degree in the left upper lung, and slight splaying of the trachea. Please see the bronchoscopy report for more information. Patient tolerated the procedure well. Results from washings, brushes, and cytology are all pending. Post bronchoscopy chest x-ray is also pending at this time. QuantiFERON has been reported as negative. Patient has remained afebrile for the past 24 hours. Medications have been reviewed. We made no changes today. Labs been reviewed. White count is 15,800 with 78.2% segs; H&H 8.8/26.2; platelet count 432,000; INR 1.3 Exam (Progress Note) - Constitutional Vitals: Period Temp Pulse Resp BP Sys/Blood Pulse Ox Last 24 Hr 98.0 F-99.3 F 89-150 113-235/57-116 89-100 Exam: Chest is clear Heart no gallop Abdomen is nontender and nondistended; bowel sounds positive 4 Lower extremities with nothing to suggest acute deep venous thrombophlebitis Psychiatric oriented 3; somewhat flat affect Neurologic long-term motor function is intact Plan: Continue present treatment. Follow-up bronchoscopy results when available. Repeat chest x-ray in the morning. Continue to hold Plavix for now. Results - Labs CBC & BMP: 10/21/16 05:19 10/20/16 05:32
[2016-10-21] MEDS ORDERED: GLUCAGON 1 MG VIAL IM PRN (11:44)
[2016-10-21] MEDS ORDERED: DEXTROSE 50% 25 GM/50 ML SYRINGE IV PRN (11:44)
--- NOTE | 2016-10-21 11:58 | Hospitalist Progress Note ---
Hospitalist: Subjective Interval history: Patient underwent bronchoscopy today. It showed resolving pneumonia and bronchitis. Patient is without complaints. Nursing notes uneventful day. Exam - Constitutional Vitals: Period Temp Pulse Resp BP Sys/Blood Pulse Ox Last 24 Hr 98.0 F-101.5 F 89-150 15-26 113-235/57-116 89-100 General appearance: no acute distress - Eye Eye exam: Present: EOMI - Respiratory Respiratory exam: Present: clear to auscultation bilaterally. Absent: rales, rhonchi, wheezes - Cardiovascular Cardiovascular exam: Present: regular rate and rhythm - GI/Abdominal GI/Abdominal exam: Present: normal bowel sounds, soft - Skin Skin exam: Present: normal color Results - Labs CBC & BMP: 10/21/16 05:19 10/20/16 05:32 - Impressions 1 Pneumonia: improving per bronch findings; on antibiotics 2. RUL nodule, small: being followed by pulmonary 3. s/p bronchoscopy today: improving pneumonia and bronchitis; await BAL results ; chest x-ray in am 4. HTN: uncontrolled; may need to add norvasc; monitor 5. DM: noted one low level on bmp yesterday; sugars improved; monitor 6. Dyslipidemia: on zocor 7. Carotid artery disease: plavix on hold; on zocor Plan: continue current regimen and as noted above
[2016-10-21] MEDS: LISINOPRIL 20 MG TABLET PO SCH ×2 (12:28→20:24)
[2016-10-21] MEDS: DOCUSATE SODIUM 100 MG CAPSULE PO SCH ×2 (12:28→20:24)
[2016-10-21] MEDS: SIMVASTATIN 20 MG TABLET PO SCH (12:29)
[2016-10-21] MEDS: BENZONATATE 100 MG CAPSULE PO SCH ×3 (12:29→20:23)
[2016-10-21] MEDS: MEROPENEM 1,000 MG in SODIUM CHLORIDE 0.9% 100 ML IV SCH ×2 (12:29→20:23)
[2016-10-21] MEDS: ACETAMINOPHEN 325 MG TABLET PO PRN ×2 (12:29→20:22)
--- NOTE | 2016-10-21 13:53 | XRay Report ---
Exam: XR chest post bronchoscope Date: 10/21/2016 11:00 AM Comparison: 10/20/2016 Indication: Post bronchoscopy Technique:[Portable AP sitting inspiration/expiration chest] Findings: The heart remains at the upper limits normal in size. No evidence of pneumothorax. Persistent diffuse parenchymal findings in the right upper lobe. Stable mediastinum and osseous structures. Impression: No pneumothorax following bronchoscopy. Fairly stable right upper lobe pneumonia. Follow-up films are recommended to document clearing and exclude additional underlying pathology. PROCEDURE INTERPRETED AT [facility] DEPARTMENT OF RADIOLOGY Final Report Signed by: Dr. Katia Gross
[2016-10-22] MEDS: ALBUTEROL/IPRATROPIUM 3 ML NEB RESP TX SCH ×4 (00:14→19:58)
[2016-10-22] MEDS: CLINDAMYCIN INJ 300 MG in PREMIX 1 EACH IV SCH ×3 (05:07→15:59)
[2016-10-22 07:33] LABS: Basophils % 0.3 % (0.0-0.8); Eosinophils # 0.2 10*3/uL (0.0-0.87); Eosinophils % 1.4 % (0.00-10.9); Hematocrit 26.8 VOL% (35.7-47.0); Hemoglobin 8.8 GM/DL (12.0-16.0); Immature Granulocytes % 0.6 %; Immature Granulocytes Absolute 0.08 #; Lymphocytes # 1.5 10*3/uL (1.4-4.0); Lymphocytes % 10.3 % (21.3-54.2); Mean Corpuscular HGB Conc 32.8 GM/DL (32-36); Mean Corpuscular Hemoglobin 29 PG (27-34); Mean Corpuscular Volume 87.3 FL (87-102); Mean Platelet Volume 10.1 FL (9.6-12.0); Monocytes # 1.1 10*3/uL (0.11-0.8); Monocytes % 7.2 % (1.7-12.7); Neutrophils # 11.7 10*3/uL (1.4-7.4); Neutrophils % 80.2 % (38.7-73.9); Platelet Count 445 T/CUMM (130-400); Red Blood Count 3.07 MC/CUMM (3.8-5.5); Red Cell Distribution Width 12.2 % (9.3-17.3); White Blood Count 14.5 T/CUMM (4-12)
[2016-10-22] MEDS: INSULIN REGULAR 100 UNIT/ML SUBCUT SCH ×4 (08:04→21:41)
[2016-10-22 08:07] LABS: Calcium 7.7 MG/DL (8.5-10.1); Magnesium 1.8 MG/DL (1.8-2.4); Potassium 4.7 MMOL/L (3.5-5.1)
[2016-10-22] MEDS: DOCUSATE SODIUM 100 MG CAPSULE PO SCH ×2 (08:52→21:40)
[2016-10-22] MEDS: BISACODYL 5 MG TABLET PO PRN (08:52)
[2016-10-22] MEDS: SODIUM CHLORIDE 0.9% 1,000 ML IV SCH ×3 (08:52→21:41)
[2016-10-22] MEDS: BENZONATATE 100 MG CAPSULE PO SCH ×3 (08:52→21:40)
[2016-10-22] MEDS: SIMVASTATIN 20 MG TABLET PO SCH (08:52)
[2016-10-22] MEDS: LISINOPRIL 20 MG TABLET PO SCH ×2 (08:52→21:40)
[2016-10-22] MEDS: MEROPENEM 1,000 MG in SODIUM CHLORIDE 0.9% 100 ML IV SCH ×2 (08:53→21:39)
--- NOTE | 2016-10-22 10:20 | XRay Report ---
XR chest 2V Date: 10/22/2016 4:00 AM History: Pneumonia Comparison: 10/20/2016 Technique: PA and lateral chest Findings: The heart is at the upper limits normal in size. Persistent diffuse infiltration in the right upper lobe with associated atelectasis. Stable mediastinum and osseous structures. Impression: Stable right upper lobe pneumonia. Continued follow chest x-ray is recommended to document clearing. PROCEDURE INTERPRETED AT [facility] DEPARTMENT OF RADIOLOGY Final Report Signed by: Dr. Katia Gross
--- NOTE | 2016-10-22 11:20 | Pulmonology Progress Note ---
Pulmonary - PN: Subj Interval history: Doe Alvarado, [facility], acting as scribe for Dr. Ari Sandhu Ms. Irwin is a 55-year-old female who we saw in initial pulmonary consultation on 10/16/2016. At that time, our impressions were: 1. Past history of 0.7 cm peripheral nodule in right upper lung. Do not believe this is related to patient's present problem 2. Right upper lung medial dense infiltrate versus mass with air bronchograms. 3. History of external carotid artery lesions. Taking Plavix to treat this. Previous evaluation by Dr. Stockton 4. Insulin-dependent diabetes mellitus 5. High blood pressure 6. Hyperlipidemia 10/17/2016. Ms. Irwin was seen today along with Ozzie Chong RN. Patient's chest x-ray shows that her presumed right upper lung abnormality appears to be improving. This highly favors it being a pneumonia. Nonetheless, she is scheduled for fiberoptic bronchoscopy on Thursday. Her Plavix is on hold in anticipation of this. She is scheduled for repeat chest x-ray on Thursday. Cold agglutinins are negative. Legionella is pending. She is afebrile. Carotid ultrasound done 10/17/2016 showed findings very weakly suggestive of 50-60% diameter stenosis on the left and less than 50% diameter stenosis of the right proximal ICA. MRA was suggested for correlation of findings on the left. This is followed as an outpatient by Dr. Stockton. QuantiFERON is pending. Sputum for Gram stain, culture sensitivity is pending. Medications have been reviewed. We made no changes today. Labs been reviewed. Creatinine 1.40, BUN 20, electrolytes are normal, calcium is low at 7.9. Vitamin D level has been ordered. Magnesium is normal at 1.9. 10/20/2016. The patient was seen today along with Ozzie Chong RN. Last night the patient had a fever of 101.2. This is trended downward since that time. Chest x-ray today is fairly stable. She is plan for fiberoptic bronchoscopy tomorrow. Her Plavix has been on hold in anticipation of bronchoscopy. Overall , she is doing reasonably well. She has not been wanting to get out of bed. We discussed this with her today. Nursing staff has discussed this with her at length. Presently, she is sitting up in the chair at bedside. Cold agglutinins are negative. Legionella is pending. Sputum Gram stain showed few gram-positive cocci in clusters, few gram-positive cocci in pairs and chains, few gram-negative rods, and few gram-positive rods. Sputum culture, however, grew no organisms. QuantiFERON is still pending. Medications have been reviewed. We made no changes. Labs been reviewed. White count was 15,400 with 80.7% segs; H&H 8.9/27.6; platelet count 436,000; INR 1.1; creatinine 1.20, BUN 12, electrolytes are normal; vitamin D level is sufficient at 26.6 10/21/2016. Patient was seen today along with Tessa Hatfield RN. Earlier today, the patient underwent fiberoptic bronchoscopy. This showed a resolving right upper lung pneumonia, small peripheral nodule in the right upper lung, erosive slightly edematous bronchitis in the right upper lung and to a lesser degree in the left upper lung, and slight splaying of the trachea. Please see the bronchoscopy report for more information. Patient tolerated the procedure well. Results from washings, brushes, and cytology are all pending. Post bronchoscopy chest x-ray is also pending at this time. QuantiFERON has been reported as negative. Patient has remained afebrile for the past 24 hours. Medications have been reviewed. We made no changes today. Labs been reviewed. White count is 15,800 with 78.2% segs; H&H 8.8/26.2; platelet count 432,000; INR 1.3 10/22/2016. The patient was seen today along with Bernadette Lynch RN. Patient's chest x-ray today shows that the right upper lung pneumonia is resolving. Cytology from bronchoscopy performed yesterday is pending. Bronchoscopy Gram stain showed few gram-positive cocci in clusters and moderate right blood cells. Cultures showing normal teresa at 24 hours. There is no AFB or fungus on smears. Cultures are, of course, pending. Overall, the patient states that she is breathing better today with less cough. Will repeat her chest x-ray tomorrow, but we suspect that her pneumonia will resolve over time. Medications have been reviewed. We made no changes today. Labs been reviewed. White count is 14,500 with 80.2% segs; H&H 8.8/26.8; platelet count 445,000; creatinine 1.20, BUN 18, electrolytes are normal Exam (Progress Note) - Constitutional Vitals: Period Temp Pulse Resp BP Sys/Blood Pulse Ox Last 24 Hr 97.5 F-101.5 F 88-119 16-20 106-155/51-87 90-100 Exam: Chest is clear Heart no gallop Abdomen is nontender and nondistended; bowel sounds positive 4 Lower extremities with nothing to suggest acute deep venous thrombophlebitis Psychiatric oriented 3; somewhat flat affect Neurologic long-term motor function is intact Plan: Continue present treatment. Follow-up bronchoscopy cytology when available. Repeat chest x-ray in the morning. Continue to hold Plavix for now. Results - Labs CBC & BMP: 10/22/16 07:09 10/22/16 07:09
--- NOTE | 2016-10-22 14:16 | Pathology Report from [facility] ---
[facility] [place] ACCESSION # : [id number] PATIENT NAME : Katharine Irwin ORDERING DR : LESLIE CONTI MD CLINICAL HX: Right Upper Lung Infiltrate POST-OP DX: Same SPECIMEN INFO: Brushing,Bronchial,RUL - 3 brushes (Received in Cytolyt) CLASS: II CLASS COMMENTS: Inflammation, reactive bronchial epithelium.CELL BLOCK: Same CLASS LEGEND: CLASS 0 Material inadequate for diagnosis because of (see comment) CLASS I Absence of atypical or abnormal cells CLASS II Atypical Cytology but no evidence of malignancy CLASS III Cytology suggestive of but not conclusive for malignancy CLASS IV Cytology strongly suggestive of malignancy CLASS V Cytology conclusive for malignancy COLLECTED DATE: 10/21/2016 [facility] REPORT DATE: 10/22/2016 ELECTRONICALLY SIGNED BY: Eric Gimenez M.D. 10/22/2016 - 9:15:56 MTDD
--- NOTE | 2016-10-22 14:16 | Pathology Report from [facility] ---
[facility] [place] : [id number] PATIENT NAME : Katharine Irwin ORDERING DR : LESLIE CONTI MD CLINICAL HX: Right Upper Lung Infiltrate POST-OP DX: Same SPECIMEN INFO: Washing,Bronchial,RUL - 15 mls bloody, cloudy CLASS: II CLASS COMMENTS: Reactive pulmonary cells, inflammationCELL BLOCK: Same CLASS LEGEND: CLASS 0 Material inadequate for diagnosis because of (see comment) CLASS I Absence of atypical or abnormal cells CLASS II Atypical Cytology but no evidence of malignancy CLASS III Cytology suggestive of but not conclusive for malignancy CLASS IV Cytology strongly suggestive of malignancy CLASS V Cytology conclusive for malignancy COLLECTED DATE: 10/21/2016 [facility] REPORT DATE: 10/22/2016 ELECTRONICALLY SIGNED BY: Eric Gimenez M.D. 10/22/2016 - 9:14:11 MTDFaiza
--- NOTE | 2016-10-22 15:16 | Pathology Report from [facility] ---
[facility] ACCESSION # : [id number] PATIENT NAME : Alycia Irwin ORDERING DR : LESLIE CONTI MD CLINICAL HX: RUL infiltrate POST-OP DX: Same SPECIMEN INFO: RUL bronchial BXS x 3 GROSS DESCRIPTION: The specimen is received in formalin labeled with the patients name and consists of a 0.5 x 0.2 cm aggregate of hemorrhagic tissue. Submitted in one cassette. DIAGNOSIS FOR ALYCIA De Paz DAWN: #1 RIGHT UPPER LUNG, BIOPSY: Benign respiratory epithelium with acute and chronic inflammation. Special stains for acid fast bacilli and fungal organisms are negative. COLLECTED DATE: 10/21/2016 [facility] REPORT DATE: 10/22/2016 ELECTRONICALLY SIGNED BY: Cindy Woodard M.D. 10/22/2016 - 14:36:55 [facility]ENTER[facility]
--- NOTE | 2016-10-22 17:24 | Hospitalist Progress Note ---
Hospitalist: Subjective Interval history: Patient notes that she is breathing better. Cough has improved. She is not eating much. Exam - Constitutional Vitals: Period Temp Pulse Resp BP Sys/Blood Pulse Ox Last 24 Hr 97.3 F-98.6 F 88-113 16-20 132-155/73-87 93-100 General appearance: no acute distress - Eye Eye exam: Present: EOMI Pupils: Present: TG - Respiratory Respiratory exam: Present: clear to auscultation bilaterally. Absent: rales, rhonchi, wheezes - Cardiovascular Cardiovascular exam: Present: regular rate and rhythm - GI/Abdominal GI/Abdominal exam: Present: normal bowel sounds, soft. Absent: tenderness - Skin Skin exam: Present: normal color Results - Labs CBC & BMP: 10/22/16 07:09 10/22/16 07:09 - Impressions 1. Pneumonia: improving; continue antibiotics; cxray from today shows stable RUL pneumonia; appreciate help from pulmonary 2. RUL nodule, small: being followed by pulmonary 3. s/p bronchoscopy 10/21/16: improving pneumonia and bronchitis; pathology shows inflammation and no malignancy; stain for afb/fungal organisms negative. 4. HTN: controlled 5. DM: sugars controlled 6. Dyslipidemia: on zocor 7. Carotid artery disease: plavix on hold; on zocor Plan: continue current regimen and as noted above; likely d/c in next 1-2 days
[2016-10-22] MEDS: ACETAMINOPHEN 325 MG TABLET PO PRN (21:39)
[2016-10-23] MEDS: CLINDAMYCIN INJ 300 MG in PREMIX 1 EACH IV SCH ×4 (00:23→15:59)
[2016-10-23] MEDS: ALBUTEROL/IPRATROPIUM 3 ML NEB RESP TX SCH ×4 (01:40→19:22)
[2016-10-23] MEDS: ACETAMINOPHEN 325 MG TABLET PO PRN ×2 (06:52→19:47)
[2016-10-23 07:05] LABS: Basophils % 0.3 % (0.0-0.8); Eosinophils # 0.5 10*3/uL (0.0-0.87); Eosinophils % 3.5 % (0.00-10.9); Hematocrit 27.9 VOL% (35.7-47.0); Immature Granulocytes % 0.7 %; Immature Granulocytes Absolute 0.09 #; Lymphocytes # 1.3 10*3/uL (1.4-4.0); Lymphocytes % 9.6 % (21.3-54.2); Mean Corpuscular HGB Conc 32.3 GM/DL (32-36); Mean Corpuscular Hemoglobin 29 PG (27-34); Mean Corpuscular Volume 88.9 FL (87-102); Mean Platelet Volume 10.9 FL (9.6-12.0); Monocytes # 0.9 10*3/uL (0.11-0.8); Monocytes % 6.7 % (1.7-12.7); Neutrophils # 10.8 10*3/uL (1.4-7.4); Neutrophils % 79.2 % (38.7-73.9); Platelet Count 451 T/CUMM (130-400); Red Blood Count 3.14 MC/CUMM (3.8-5.5); Red Cell Distribution Width 12.4 % (9.3-17.3); White Blood Count 13.7 T/CUMM (4-12)
[2016-10-23 07:34] LABS: Calcium 7.9 MG/DL (8.5-10.1); Magnesium 1.9 MG/DL (1.8-2.4); Osmolality,Calculated 272.7 MOS/KG (273-304); Potassium 4.8 MMOL/L (3.5-5.1)
[2016-10-23 07:37] LABS: Hypochromasia 1+
[2016-10-23 07:38] LABS: Burr Cells Slight; Giant Platelets Few; Ovalocytes Few; Platelet Estimate Adequate
[2016-10-23] MEDS: INSULIN REGULAR 100 UNIT/ML SUBCUT SCH ×4 (08:15→21:23)
[2016-10-23] MEDS: MEROPENEM 1,000 MG in SODIUM CHLORIDE 0.9% 100 ML IV SCH ×2 (08:35→21:23)
[2016-10-23] MEDS: DOCUSATE SODIUM 100 MG CAPSULE PO SCH ×2 (08:36→21:22)
[2016-10-23] MEDS: LISINOPRIL 20 MG TABLET PO SCH ×2 (08:36→21:22)
[2016-10-23] MEDS: BISACODYL 5 MG TABLET PO PRN (08:37)
[2016-10-23] MEDS: BENZONATATE 100 MG CAPSULE PO SCH ×3 (08:37→21:22)
[2016-10-23] MEDS: SIMVASTATIN 20 MG TABLET PO SCH (08:37)
--- NOTE | 2016-10-23 08:48 | XRay Report ---
XR chest 2V Date: 10/23/2016 4:00 AM History: Right upper lobe pneumonia Comparison: 10/22/2016 Technique: PA and lateral chest Findings: The heart remains normal in size. Very minimally improved right upper lobe pneumonia. Stable mediastinum and osseous structures. Impression: Very minimally improved right upper lobe pneumonia. PROCEDURE INTERPRETED AT [facility] DEPARTMENT OF RADIOLOGY Final Report Signed by: Dr. Katia Gross
[2016-10-23] MEDS ORDERED: SODIUM PHOSPHATE ENEMA 133 ML BOTTLE RECTAL PRN (09:15)
[2016-10-23] MEDS: SODIUM CHLORIDE 0.9% 1,000 ML IV SCH (09:21)
[2016-10-23] MEDS: BUTALBITAL/ACETAMIN/CAFFEINE 50-325-40 MG TABLET PO PRN ×2 (09:50→19:48)
--- NOTE | 2016-10-23 11:20 | Pulmonology Progress Note ---
Pulmonary - PN: Subj Interval history: Doe Alvarado, [facility], acting as scribe for Dr. Ari Sandhu Ms. Irwin is a 55-year-old female who we saw in initial pulmonary consultation on 10/16/2016. At that time, our impressions were: 1. Past history of 0.7 cm peripheral nodule in right upper lung. Do not believe this is related to patient's present problem 2. Right upper lung medial dense infiltrate versus mass with air bronchograms. 3. History of external carotid artery lesions. Taking Plavix to treat this. Previous evaluation by Dr. Stockton 4. Insulin-dependent diabetes mellitus 5. High blood pressure 6. Hyperlipidemia 10/17/2016. Ms. Irwin was seen today along with Ozzie Chong RN. Patient's chest x-ray shows that her presumed right upper lung abnormality appears to be improving. This highly favors it being a pneumonia. Nonetheless, she is scheduled for fiberoptic bronchoscopy on Thursday. Her Plavix is on hold in anticipation of this. She is scheduled for repeat chest x-ray on Thursday. Cold agglutinins are negative. Legionella is pending. She is afebrile. Carotid ultrasound done 10/17/2016 showed findings very weakly suggestive of 50-60% diameter stenosis on the left and less than 50% diameter stenosis of the right proximal ICA. MRA was suggested for correlation of findings on the left. This is followed as an outpatient by Dr. Stockton. QuantiFERON is pending. Sputum for Gram stain, culture sensitivity is pending. Medications have been reviewed. We made no changes today. Labs been reviewed. Creatinine 1.40, BUN 20, electrolytes are normal, calcium is low at 7.9. Vitamin D level has been ordered. Magnesium is normal at 1.9. 10/20/2016. The patient was seen today along with Ozzie Chong RN. Last night the patient had a fever of 101.2. This is trended downward since that time. Chest x-ray today is fairly stable. She is plan for fiberoptic bronchoscopy tomorrow. Her Plavix has been on hold in anticipation of bronchoscopy. Overall , she is doing reasonably well. She has not been wanting to get out of bed. We discussed this with her today. Nursing staff has discussed this with her at length. Presently, she is sitting up in the chair at bedside. Cold agglutinins are negative. Legionella is pending. Sputum Gram stain showed few gram-positive cocci in clusters, few gram-positive cocci in pairs and chains, few gram-negative rods, and few gram-positive rods. Sputum culture, however, grew no organisms. QuantiFERON is still pending. Medications have been reviewed. We made no changes. Labs been reviewed. White count was 15,400 with 80.7% segs; H&H 8.9/27.6; platelet count 436,000; INR 1.1; creatinine 1.20, BUN 12, electrolytes are normal; vitamin D level is sufficient at 26.6 10/21/2016. Patient was seen today along with Tessa Hatfield RN. Earlier today, the patient underwent fiberoptic bronchoscopy. This showed a resolving right upper lung pneumonia, small peripheral nodule in the right upper lung, erosive slightly edematous bronchitis in the right upper lung and to a lesser degree in the left upper lung, and slight splaying of the trachea. Please see the bronchoscopy report for more information. Patient tolerated the procedure well. Results from washings, brushes, and cytology are all pending. Post bronchoscopy chest x-ray is also pending at this time. QuantiFERON has been reported as negative. Patient has remained afebrile for the past 24 hours. Medications have been reviewed. We made no changes today. Labs been reviewed. White count is 15,800 with 78.2% segs; H&H 8.8/26.2; platelet count 432,000; INR 1.3 10/22/2016. The patient was seen today along with Bernadette Lynch RN. Patient's chest x-ray today shows that the right upper lung pneumonia is resolving. Cytology from bronchoscopy performed yesterday is pending. Bronchoscopy Gram stain showed few gram-positive cocci in clusters and moderate right blood cells. Cultures showing normal teresa at 24 hours. There is no AFB or fungus on smears. Cultures are, of course, pending. Overall, the patient states that she is breathing better today with less cough. Will repeat her chest x-ray tomorrow, but we suspect that her pneumonia will resolve over time. Medications have been reviewed. We made no changes today. Labs been reviewed. White count is 14,500 with 80.2% segs; H&H 8.8/26.8; platelet count 445,000; creatinine 1.20, BUN 18, electrolytes are normal 10/23/2016. The patient was seen today along with Ozzie Chong RN. This patient was in outpatient treatment failure of a right upper lung pneumonia. Chest x-ray today shows that this is resolving. She has been treated with Merrem and Cleocin during this admission. On 10/21/2016 we performed fiberoptic bronchoscopy. Cytologies from this was class I and class II. From a pulmonary standpoint she continues to improve. When the patient is discharged, we would recommend Ceftin 500 mg twice daily for 10 days as well as Cleocin 300 mg 3 times daily for 10 days. From our standpoint, she is now okay to restart her Plavix. This is secondary to carotid artery disease which is managed by Dr. Stockton. Medications have been reviewed. We made no changes today other than to restart her Plavix. Labs been reviewed. White count is 13,700 with 79.2% segs; H&H 9.0/27.9; platelet count 151,000; creatinine 1.10, BUN 16, electrolytes are normal Exam (Progress Note) - Constitutional Vitals: Period Temp Pulse Resp BP Sys/Blood Pulse Ox Last 24 Hr 97.3 F-99.0 F 87-110 16-20 137-187/68-98 95-99 Exam: Chest is clear Heart no gallop Abdomen is nontender and nondistended; bowel sounds positive 4 Lower extremities with nothing to suggest acute deep venous thrombophlebitis Psychiatric oriented 3; somewhat flat affect Neurologic long-term motor function is intact Plan: Continue present treatment while inpatient. Discharge recommendations as above. We have restarted her Plavix. She is stable from a pulmonary standpoint , so we will sign off. Please reconsult as needed. Results - Labs CBC & BMP: 10/23/16 05:01 10/23/16 05:01
[2016-10-23] MEDS: ONDANSETRON 4 MG/2 ML VIAL IV PRN (14:19)
--- NOTE | 2016-10-23 17:44 | Hospitalist Progress Note ---
Hospitalist: Subjective Interval history: 55-year-old female who was admitted with right upper lobe pneumonia still has shortness of breath and cough Exam - Constitutional Vitals: Period Temp Pulse Resp BP Sys/Blood Pulse Ox Last 24 Hr 97.6 F-99.0 F 87-106 16-22 131-187/68-98 95-99 Exam: General: No Acute Distress HEENT: Normocephalic, atraumatic, Extra ocular movements intact Neck: Supple, No JVD Chest: Clear to auscultation B/L CV: S1 + S2 audible without murmur, gallop or rub Abd: soft, NT, Non-distended, BS + Ext: No edema Skin: No purpura, bruising or rash Rheumatologic: No Joint deformities Neurologic: Strength 5/5 all extremities, no gross sensory deficits Results - Labs CBC & BMP: 10/23/16 05:01 10/23/16 05:01 - Impressions Assessment and Plan: Pneumonia, bacterial Status: Acute Assessment and plan: continue with IV antibiotics. Patient status post FOB Current Visit: Yes Diabetes type 2 Status: Chronic Assessment and plan: Controlled Current Visit: Yes Essential hypertension Status: Chronic Assessment and plan: Controlled Current Visit: Yes
[2016-10-24] MEDS: ALBUTEROL/IPRATROPIUM 3 ML NEB RESP TX SCH ×4 (00:15→19:28)
[2016-10-24] MEDS: CLINDAMYCIN INJ 300 MG in PREMIX 1 EACH IV SCH ×3 (01:19→13:58)
[2016-10-24] MEDS: SODIUM CHLORIDE 0.9% 1,000 ML IV SCH ×2 (01:20→17:18)
[2016-10-24] MEDS: INSULIN REGULAR 100 UNIT/ML SUBCUT SCH ×4 (08:20→21:25)
[2016-10-24] MEDS: BENZONATATE 100 MG CAPSULE PO SCH ×3 (09:13→21:24)
[2016-10-24] MEDS: CLOPIDOGREL 75 MG TABLET PO SCH (09:13)
[2016-10-24] MEDS: LISINOPRIL 20 MG TABLET PO SCH ×2 (09:13→21:24)
[2016-10-24] MEDS: MEROPENEM 1,000 MG in SODIUM CHLORIDE 0.9% 100 ML IV SCH ×2 (09:14→21:33)
[2016-10-24] MEDS: SIMVASTATIN 20 MG TABLET PO SCH (09:14)
[2016-10-24] MEDS: DOCUSATE SODIUM 100 MG CAPSULE PO SCH ×2 (09:14→21:24)
[2016-10-24] MEDS: ACETAMINOPHEN 325 MG TABLET PO PRN ×2 (09:16→17:23)
--- NOTE | 2016-10-24 15:12 | CT Report ---
Exam: CT chest w con Date: 10/24/2016 12:42 PM Comparison: CT chest 10/15/2016 Indication: Fever with persistent infiltrate in right upper lobe Technique:[Sequential axial scans of the chest were obtained following the injection of 80 cc Omnipaque 350. Coronal and sagittal 2-D reconstructions were obtained. Total DLP: 234.10] Findings: The heart is enlarged with cardiac fat pads. No evidence of aortic dissection or pulmonary emboli. Progressive enlargement of multiple mediastinal and right hilar nodes. Progressive 73 x 73 x 61 mm masslike finding in the right superhilar/right upper lobe location. Progressive significant adjacent consolidation with atelectasis and air bronchograms. Progressive bronchial compression with interval development of 28 mm right pleural effusion in the mid chest location. Additional progressive diffuse groundglass opacities in the remainder the lungs with increased atelectasis/infiltration. Degenerative changes are noted. Impression: Progressive mediastinal and right hilar adenopathy with interval development of small to moderate right pleural effusion. Evidence of progressive bilateral pneumonia especially in the right upper lobe. Progressive 73 x 73 x 61 mm masslike finding in the right suprahilar location/medial right upper lobe. Although some of this finding may be related to progressive dense consolidation, enlarging mass cannot be excluded and bronchoscopy may be helpful for further evaluation. This CT exam was performed using one or more the following dose reduction techniques: Automated exposure control, adjustment of the MA and/or KV according to patient size, or use of iterative reconstruction technique. PROCEDURE INTERPRETED AT [facility] DEPARTMENT OF RADIOLOGY Final Report Signed by: Dr. Katia Gross
--- NOTE | 2016-10-24 16:24 | Hospitalist Progress Note ---
Hospitalist: Subjective Interval history: 55-year-old female who was admitted with right upper lobe pneumonia still has shortness of breath and cough Exam - Constitutional Vitals: Period Temp Pulse Resp BP Sys/Blood Pulse Ox Last 24 Hr 98.3 F-100.4 F 87-110 16-20 105-186/55-90 95-100 Exam: General: No Acute Distress HEENT: Normocephalic, atraumatic, Extra ocular movements intact Neck: Supple, No JVD Chest: Clear to auscultation B/L, crackles right upper chest CV: S1 + S2 audible without murmur, gallop or rub Abd: soft, NT, Non-distended, BS + Ext: No edema Skin: No purpura, bruising or rash Rheumatologic: No Joint deformities Neurologic: Strength 5/5 all extremities, no gross sensory deficits Results - Labs CBC & BMP: 10/23/16 05:01 10/23/16 05:01 - Impressions Assessment and Plan: Pneumonia, bacterial Status: Acute Assessment and plan: CT chest showed persistent pneumonia with mild right pleural effusion . Patient status post FOB. Clindamycin discontinued 10/24. Started on IV vancomycin and doxycycline , continue IV Merrem. Pulmonary signed off 10/23. Infectious disease consulted Current Visit: Yes Diabetes type 2 Status: Chronic Assessment and plan: Controlled Current Visit: Yes Essential hypertension Status: Chronic Assessment and plan: Controlled Current Visit: Yes
[2016-10-24] MEDS: VANCOMYCIN INJ 1,000 MG in SODIUM CHLORIDE 0.9% 250 ML IV SCH (17:18)
[2016-10-24] MEDS: DOXYCYCLINE HYCLATE 100 MG CAPSULE PO SCH (21:24)
[2016-10-25] MEDS: ALBUTEROL/IPRATROPIUM 3 ML NEB RESP TX SCH ×4 (00:40→20:01)
[2016-10-25 04:34] LABS: Basophils % 0.2 % (0.0-0.8); Eosinophils # 0.3 10*3/uL (0.0-0.87); Eosinophils % 2.6 % (0.00-10.9); Hematocrit 26.4 VOL% (35.7-47.0); Hemoglobin 8.6 GM/DL (12.0-16.0); Immature Granulocytes % 0.8 %; Lymphocytes # 1.3 10*3/uL (1.4-4.0); Lymphocytes % 10.4 % (21.3-54.2); Mean Corpuscular HGB Conc 32.6 GM/DL (32-36); Mean Corpuscular Hemoglobin 29 PG (27-34); Mean Platelet Volume 10.3 FL (9.6-12.0); Monocytes % 7.8 % (1.7-12.7); Neutrophils # 9.6 10*3/uL (1.4-7.4); Neutrophils % 78.2 % (38.7-73.9); Platelet Count 488 T/CUMM (130-400); Red Cell Distribution Width 12.3 % (9.3-17.3); White Blood Count 12.2 T/CUMM (4-12)
[2016-10-25 05:05] LABS: Calcium 7.6 MG/DL (8.5-10.1); Osmolality,Calculated 273.8 MOS/KG (273-304); Potassium 4.2 MMOL/L (3.5-5.1)
[2016-10-25] MEDS: VANCOMYCIN INJ 1,000 MG in SODIUM CHLORIDE 0.9% 250 ML IV SCH ×2 (05:22→17:26)
[2016-10-25 08:15] LABS: HIV Antigen/Antibody Result Nonreactive (Nonreactive)
[2016-10-25] MEDS: DOXYCYCLINE HYCLATE 100 MG CAPSULE PO SCH ×2 (09:31→20:35)
[2016-10-25] MEDS: MEROPENEM 1,000 MG in SODIUM CHLORIDE 0.9% 100 ML IV SCH ×2 (09:31→20:36)
[2016-10-25] MEDS: BENZONATATE 100 MG CAPSULE PO SCH ×3 (09:31→20:34)
[2016-10-25] MEDS: LISINOPRIL 20 MG TABLET PO SCH ×2 (09:31→20:35)
[2016-10-25] MEDS: CLOPIDOGREL 75 MG TABLET PO SCH (09:31)
[2016-10-25] MEDS: SIMVASTATIN 20 MG TABLET PO SCH (09:31)
[2016-10-25] MEDS: DOCUSATE SODIUM 100 MG CAPSULE PO SCH ×2 (09:31→20:34)
[2016-10-25] MEDS: INSULIN REGULAR 100 UNIT/ML SUBCUT SCH ×4 (09:32→20:35)
[2016-10-25] MEDS: CHOLECALCIFEROL 1,000 UNIT TABLET PO SCH (15:46)
[2016-10-25] MEDS: methylPREDNISolone SOD SUC 40 MG/1 ML VIAL IV SCH (15:46)
[2016-10-25] MEDS: SODIUM CHLORIDE 0.9% 1,000 ML IV SCH ×2 (15:47)
--- NOTE | 2016-10-25 16:19 | Hospitalist Progress Note ---
Hospitalist: Subjective Interval history: 55-year-old female who was admitted with right upper lobe pneumonia still has shortness of breath and cough Exam - Constitutional Vitals: Period Temp Pulse Resp BP Sys/Blood Pulse Ox Last 24 Hr 97.3 F-99.4 F 85-107 16-20 125-158/63-89 92-100 Exam: General: No Acute Distress HEENT: Normocephalic, atraumatic, Extra ocular movements intact Neck: Supple, No JVD Chest: Clear to auscultation B/L, crackles right upper chest CV: S1 + S2 audible without murmur, gallop or rub Abd: soft, NT, Non-distended, BS + Ext: No edema Skin: No purpura, bruising or rash Rheumatologic: No Joint deformities Neurologic: Strength 5/5 all extremities, no gross sensory deficits Results - Labs CBC & BMP: 10/25/16 02:17 10/25/16 02:17 - Impressions Assessment and Plan: Pneumonia, bacterial Status: Acute Assessment and plan: CT chest showed persistent pneumonia with mild right pleural effusion . Patient status post FOB. Clindamycin discontinued 10/24. Started on IV vancomycin and doxycycline , continue IV Merrem. Pulmonary signed off 10/23. Infectious disease consulted. She has element of bronchiolitis, started her on IV steroids 10/25 Current Visit: Yes Diabetes type 2 Status: Chronic Assessment and plan: Controlled Current Visit: Yes Essential hypertension Status: Chronic Assessment and plan: Controlled Current Visit: Yes
[2016-10-25] MEDS: BISACODYL 5 MG TABLET PO PRN (17:26)
[2016-10-26] MEDS: ALBUTEROL/IPRATROPIUM 3 ML NEB RESP TX SCH ×4 (00:24→20:03)
[2016-10-26] MEDS: methylPREDNISolone SOD SUC 40 MG/1 ML VIAL IV SCH ×2 (02:16→17:47)
[2016-10-26] MEDS: VANCOMYCIN INJ 1,000 MG in SODIUM CHLORIDE 0.9% 250 ML IV SCH ×2 (04:45→23:56)
[2016-10-26] MEDS: INSULIN REGULAR 100 UNIT/ML SUBCUT SCH ×4 (08:57→21:09)
[2016-10-26] MEDS: MEROPENEM 1,000 MG in SODIUM CHLORIDE 0.9% 100 ML IV SCH ×2 (08:58→21:16)
[2016-10-26] MEDS: CHOLECALCIFEROL 1,000 UNIT TABLET PO SCH (08:58)
[2016-10-26] MEDS: LISINOPRIL 20 MG TABLET PO SCH ×2 (08:58→21:08)
[2016-10-26] MEDS: CLOPIDOGREL 75 MG TABLET PO SCH (08:58)
[2016-10-26] MEDS: DOCUSATE SODIUM 100 MG CAPSULE PO SCH ×2 (08:59→21:09)
[2016-10-26] MEDS: DOXYCYCLINE HYCLATE 100 MG CAPSULE PO SCH ×2 (08:59→21:09)
[2016-10-26] MEDS: PANTOPRAZOLE 40 MG TABLET PO SCH (08:59)
[2016-10-26] MEDS: BISACODYL 5 MG TABLET PO PRN (08:59)
[2016-10-26] MEDS: BENZONATATE 100 MG CAPSULE PO SCH ×3 (08:59→21:09)
[2016-10-26] MEDS: SIMVASTATIN 20 MG TABLET PO SCH (08:59)
[2016-10-26] MEDS: SODIUM CHLORIDE 0.9% 1,000 ML IV SCH ×2 (09:00→23:49)
--- NOTE | 2016-10-26 16:47 | Hospitalist Progress Note ---
Hospitalist: Subjective Interval history: 55-year-old female with pneumonia, has some cough Exam - Constitutional Vitals: Period Temp Pulse Resp BP Sys/Blood Pulse Ox Last 24 Hr 96.3 F-98.2 F 84-98 16-20 145-170/71-91 94-100 Exam: General: No Acute Distress HEENT: Normocephalic, atraumatic, Extra ocular movements intact Neck: Supple, No JVD Chest: Clear to auscultation B/L, crackles right upper chest CV: S1 + S2 audible without murmur, gallop or rub Abd: soft, NT, Non-distended, BS + Ext: No edema Skin: No purpura, bruising or rash Rheumatologic: No Joint deformities Neurologic: Strength 5/5 all extremities, no gross sensory deficits Results - Labs CBC & BMP: 10/25/16 02:17 10/25/16 02:17 - Impressions Assessment and Plan: Pneumonia, bacterial Status: Acute Assessment and plan: CT chest showed persistent pneumonia with mild right pleural effusion . Patient status post FOB. Clindamycin discontinued 10/24. Started on IV vancomycin and doxycycline , continue IV Merrem. Pulmonary signed off 10/23. Infectious disease consulted. She has element of bronchiolitis, started her on IV steroids 10/25 Current Visit: Yes Diabetes type 2 Status: Chronic Assessment and plan: Controlled Current Visit: Yes Essential hypertension Status: Chronic Assessment and plan: Controlled Current Visit: Yes
--- NOTE | 2016-10-26 18:58 | XRay Report ---
2 view chest October 26, 2016 at 1844 hours Indication: Shortness of breath Comparison: October 23, 2016 at 0746 hours Findings: Cardiomediastinal contours are normal. Some degree of clearing of the right upper lobe consolidation. Small residual right pleural effusion. No acute osseous abnormalities. Visualized upper abdomen demonstrates no acute pathology. Impression: Improving right upper lobe consolidation and effusion PROCEDURE INTERPRETED AT [facility] DEPARTMENT OF RADIOLOGY Final Report Signed by: Dc Jim
[2016-10-26] MEDS: ONDANSETRON 4 MG/2 ML VIAL IV PRN (21:13)
[2016-10-27] MEDS: ALBUTEROL/IPRATROPIUM 3 ML NEB RESP TX SCH ×4 (00:47→19:52)
[2016-10-27] MEDS: methylPREDNISolone SOD SUC 40 MG/1 ML VIAL IV SCH ×2 (02:05→14:27)
[2016-10-27 03:28] LABS: Basophils % 0.2 % (0.0-0.8); Hematocrit 25.3 VOL% (35.7-47.0); Hemoglobin 8.3 GM/DL (12.0-16.0); Immature Granulocytes % 1.3 %; Immature Granulocytes Absolute 0.17 #; Lymphocytes # 0.8 10*3/uL (1.4-4.0); Lymphocytes % 6.5 % (21.3-54.2); Mean Corpuscular HGB Conc 32.8 GM/DL (32-36); Mean Corpuscular Hemoglobin 29 PG (27-34); Mean Corpuscular Volume 87.5 FL (87-102); Mean Platelet Volume 9.9 FL (9.6-12.0); Monocytes # 0.4 10*3/uL (0.11-0.8); Monocytes % 2.8 % (1.7-12.7); Neutrophils # 11.6 10*3/uL (1.4-7.4); Neutrophils % 89.2 % (38.7-73.9); Platelet Count 531 T/CUMM (130-400); Red Blood Count 2.89 MC/CUMM (3.8-5.5); Red Cell Distribution Width 12.3 % (9.3-17.3)
[2016-10-27 03:55] LABS: Calcium 8.1 MG/DL (8.5-10.1); Osmolality,Calculated 294.4 MOS/KG (273-304); Potassium 4.4 MMOL/L (3.5-5.1)
--- NOTE | 2016-10-27 08:51 | Hospitalist Progress Note ---
Assessment and Plan (1) Lung mass Status: Acute Current Visit: Yes (2) Pneumonia Status: Acute Assessment and plan: Chest x-ray greatly improved. Patient reports intermittent shortness of breath however, reports an overall improvement since admission. We will continue intravenous antibiotic coverage and corticosteroids as previously ordered. We will recheck chest x-ray in a.m. Current Visit: Yes Qualifiers: Pneumonia type: due to unspecified organism Laterality: right Lung location: upper lobe of lung Qualified Code(s): J18.1 - Lobar pneumonia, unspecified organism (3) Diabetes Status: Chronic Assessment and plan: Accu-Cheks remain relatively elevated. This is largely attributed to the patient's current corticosteroid use. We will continue Accu-Cheks with sliding scale coverage as previously ordered. Current Visit: Yes Qualifiers: Diabetes mellitus type: type 2 (4) Hypertension Status: Chronic Assessment and plan: Blood pressures are stable. We will continue current antihypertensive regimen as ordered. Current Visit: Yes Qualifiers: Hypertension type: essential hypertension Qualified Code(s): I10 - Essential (primary) hypertension Hospitalist: Subjective Interval history: Patient seen and examined; chart reviewed. No significant overnight events reported per staff. Patient states "I feel better". Exam - Constitutional Vitals: Period Temp Pulse Resp BP Sys/Blood Pulse Ox Last 24 Hr 96.5 F-97.4 F 81-90 16-20 153-181/80-99 94-99 General appearance: normal weight, no acute distress - Head Head exam: Present: normal inspection, normocephalic, atraumatic - Eye Eye exam: Present: EOMI. Absent: conjunctival injection Pupils: Present: TG, normal accommodation - ENT ENT exam: Present: normal exam, normal external ear exam, normal oropharynx - Neck Neck exam: Present: normal inspection. Absent: lymphadenopathy, meningismus, thyromegaly - Respiratory Respiratory exam: Present: clear to auscultation bilaterally. Absent: rales, rhonchi, stridor, wheezes - Cardiovascular Cardiovascular exam: Present: regular rate and rhythm. Absent: carotid bruit, diastolic murmur, gallop, JVD, rubs, systolic murmur - GI/Abdominal GI/Abdominal exam: Present: normal bowel sounds, rebound - Extremities Exam Extremities exam: Present: normal inspection, normal capillary refill, full ROM. Absent: edema - Back Exam Back exam: Present: normal inspection - Neurological Exam Neurological exam: Present: alert, oriented X3, CN II-XII intact - Psychiatric Psychiatric exam: Present: normal affect, normal mood - Skin Skin exam: Present: normal color, warm, dry Results - Labs CBC & BMP: 10/27/16 03:01 10/27/16 03:01 Lab Results: I have reviewed the past 24 hour labs
[2016-10-27] MEDS: CHOLECALCIFEROL 1,000 UNIT TABLET PO SCH (09:28)
[2016-10-27] MEDS: CLOPIDOGREL 75 MG TABLET PO SCH (09:28)
[2016-10-27] MEDS: BENZONATATE 100 MG CAPSULE PO SCH ×3 (09:28→22:44)
[2016-10-27] MEDS: INSULIN REGULAR 100 UNIT/ML SUBCUT SCH ×4 (09:28→22:44)
[2016-10-27] MEDS: LISINOPRIL 20 MG TABLET PO SCH ×2 (09:28→22:43)
[2016-10-27] MEDS: PANTOPRAZOLE 40 MG TABLET PO SCH (09:28)
[2016-10-27] MEDS: MEROPENEM 1,000 MG in SODIUM CHLORIDE 0.9% 100 ML IV SCH ×2 (09:29→22:44)
[2016-10-27] MEDS: DOCUSATE SODIUM 100 MG CAPSULE PO SCH ×2 (09:29→22:43)
[2016-10-27] MEDS: SIMVASTATIN 20 MG TABLET PO SCH (09:29)
--- NOTE | 2016-10-27 09:58 | XRay Report ---
Portable chest October 27, 2016 at 0522 hours Indication: Worsening shortness of breath Comparison images from previous day at 1844 hours Findings: Worsening right upper lobe consolidation as well as developing diffuse interstitial opacities bilaterally. The cardiomediastinal contours are stable. Visualized upper abdomen and osseous structures are unremarkable. Impression: 1. Worsening right upper lobe consolidation and developing diffuse interstitial opacities all likely infectious in etiology PROCEDURE INTERPRETED AT [facility] DEPARTMENT OF RADIOLOGY Final Report Signed by: Dc Jim
[2016-10-27] MEDS: DOXYCYCLINE HYCLATE 100 MG CAPSULE PO SCH ×2 (12:25→22:43)
[2016-10-27] MEDS: SODIUM CHLORIDE 0.9% 1,000 ML IV SCH ×3 (15:38→22:45)
[2016-10-27] MEDS: VANCOMYCIN INJ 1,000 MG in SODIUM CHLORIDE 0.9% 250 ML IV SCH (16:59)
[2016-10-28] MEDS: ALBUTEROL/IPRATROPIUM 3 ML NEB RESP TX SCH ×3 (02:08→12:15)
[2016-10-28] MEDS: methylPREDNISolone SOD SUC 40 MG/1 ML VIAL IV SCH ×2 (03:13→14:30)
[2016-10-28 05:34] LABS: Basophils % 0.2 % (0.0-0.8); Eosinophils % 0.2 % (0.00-10.9); Hemoglobin 8.4 GM/DL (12.0-16.0); Immature Granulocytes % 1.2 %; Immature Granulocytes Absolute 0.14 #; Lymphocytes # 2.1 10*3/uL (1.4-4.0); Lymphocytes % 18.1 % (21.3-54.2); Mean Corpuscular HGB Conc 32.3 GM/DL (32-36); Mean Corpuscular Hemoglobin 29 PG (27-34); Mean Corpuscular Volume 88.1 FL (87-102); Mean Platelet Volume 9.8 FL (9.6-12.0); Monocytes # 0.5 10*3/uL (0.11-0.8); Monocytes % 4.3 % (1.7-12.7); Neutrophils # 8.9 10*3/uL (1.4-7.4); Platelet Count 561 T/CUMM (130-400); Red Blood Count 2.95 MC/CUMM (3.8-5.5); Red Cell Distribution Width 12.4 % (9.3-17.3); White Blood Count 11.7 T/CUMM (4-12)
[2016-10-28 06:12] LABS: Albumin 1.4 G/DL (3.4-5.0); Bilirubin,Total 0.6 MG/DL (0.2-1.0); Calcium 7.8 MG/DL (8.5-10.1); Magnesium 1.6 MG/DL (1.8-2.4); Osmolality,Calculated 293.1 MOS/KG (273-304); Phosphorous 2.5 MG/DL (2.5-4.9); Total Protein 5.5 G/DL (6.4-8.3)
[2016-10-28 06:15] LABS: Calcium 7.9 MG/DL (8.5-10.1); Osmolality,Calculated 290.4 MOS/KG (273-304)
[2016-10-28] MEDS: LISINOPRIL 20 MG TABLET PO SCH ×2 (07:04→10:07)
[2016-10-28] MEDS ORDERED: MAGNESIUM SULF RIDER 2 GM in PREMIX 1 EACH IV PRN (07:24)
[2016-10-28] MEDS ORDERED: MAGNESIUM SULF RIDER 4 GM in PREMIX 1 EACH IV PRN (07:24)
[2016-10-28] MEDS: SODIUM CHLORIDE 0.9% 1,000 ML IV SCH (07:35)
--- NOTE | 2016-10-28 08:08 | XRay Report ---
Exam: XR chest 1V portable Date: 10/28/2016 4:00 AM Indication: COPD Comparison: 10/27/2016 Technical: AP Findings: Cardiomegaly is present. Low volume effusions are present. Pneumonic Infiltrates are present within the right upper lower and middle lobe region with some mild interstitial infiltrates in the left perihilar region. Small granuloma changes are also present with some reticular nodular densities are scattered. Impression: 1. Persistent infiltrates involving the right upper lower and middle lobe region with some left perihilar infiltrate present 2. Granuloma changes 3. Cardiomegaly 4. Tiny effusions bilaterally PROCEDURE INTERPRETED AT [facility] DEPARTMENT OF RADIOLOGY Final Report Signed by: Dr. Ari Jc
--- NOTE | 2016-10-28 09:05 | Hospitalist Progress Note ---
Assessment and Plan (1) Lung mass Status: Acute Current Visit: Yes (2) Pneumonia Status: Acute Assessment and plan: Chest x-ray greatly improved. Patient reports intermittent shortness of breath however, reports an overall improvement since admission. We will continue intravenous antibiotic coverage and corticosteroids as previously ordered. We will recheck chest x-ray in a.m. /-chest x-ray reported persistent infiltrates involving the right upper lobe and middle lobe region with some left perihilar infiltrate present. In addition , tiny effusions were noted bilaterally. We will continue intravenous antibiotic coverage and corticosteroids as previously ordered. We will recheck chest x-ray in a.m. Current Visit: Yes Qualifiers: Pneumonia type: due to unspecified organism Laterality: right Lung location: upper lobe of lung Qualified Code(s): J18.1 - Lobar pneumonia, unspecified organism (3) Diabetes Status: Chronic Assessment and plan: Accu-Cheks remain relatively elevated. This is largely attributed to the patient's current corticosteroid use. We will continue Accu-Cheks with sliding scale coverage as previously ordered. Current Visit: Yes Qualifiers: Diabetes mellitus type: type 2 (4) Hypertension Status: Chronic Assessment and plan: Blood pressures are stable. We will continue current antihypertensive regimen as ordered. Current Visit: Yes Qualifiers: Hypertension type: essential hypertension Qualified Code(s): I10 - Essential (primary) hypertension Hospitalist: Subjective Interval history: Patient seen and examined; chart reviewed. No significant overnight events reported. Exam - Constitutional Vitals: Period Temp Pulse Resp BP Sys/Blood Pulse Ox Last 24 Hr 97.0 F-97.5 F 72-95 16-20 146-166/80-91 95-99 General appearance: normal weight, no acute distress - Head Head exam: Present: normal inspection, normocephalic - Eye Eye exam: Present: EOMI Pupils: Present: TG, normal accommodation - ENT ENT exam: Present: normal exam, normal external ear exam, normal oropharynx - Neck Neck exam: Present: normal inspection. Absent: lymphadenopathy, meningismus, thyromegaly - Respiratory Respiratory exam: Present: clear to auscultation bilaterally. Absent: rales, rhonchi, stridor, wheezes - Cardiovascular Cardiovascular exam: Present: regular rate and rhythm. Absent: carotid bruit, diastolic murmur, gallop, JVD, rubs, systolic murmur - GI/Abdominal GI/Abdominal exam: Present: normal bowel sounds, soft - Extremities Exam Extremities exam: Present: normal inspection, normal capillary refill, full ROM. Absent: edema - Back Exam Back exam: Present: normal inspection - Neurological Exam Neurological exam: Present: alert, oriented X3, CN II-XII intact - Psychiatric Psychiatric exam: Present: normal affect, normal mood - Skin Skin exam: Present: normal color, warm, dry Results - Labs CBC & BMP: 10/28/16 04:40 10/28/16 04:40 Lab Results: I have reviewed the past 24 hour labs
--- NOTE | 2016-10-28 09:51 | Discharge Summary ---
<Fe Walker - Last Filed: 10/28/16 09:17> Hospital Course - Hospital Course Hospital Course: Ms. Irwin is a 55 y/o female w/PMHx of diabetes and hypertension presented to the ED 10/15/16 as a transfer from [facility] for further evaluation of cough and shortness of breath, and outpatient treatment failure of pneumonia. And for follow up for a CT scan that showed a masslike area of increased density in the right upper lobe medially adjacent to the mediastinum abutting the pleura. There was some air bronchograms within the mass and a patchy increased density in the adjacent lung parenchymal. CXR: increase in right apical mass or rounded consolidated infiltrate could be due to differences in positioning. LABS: BUN 26 and creatinine 1.60, Glucose 145, Alkaline Phosphatase 149. Hospitalist Services consulted for admission and further evaluation and started IV antibiotics, monitor blood sugars, consult pulmonary for assistance and repeat chest xray in a.m Pulmonary Consult noted she has right upper lung mass versus infiltrate with air bronchograms and recommended a bronchoscopy. repeat chest xray showed worsening right upper lobe pneumonia or mass. Bronchoscopy 10/21/16: resolving right upper lung pneumonia, small peripheral nodule right upper lung, probably benign; slight splaying of trachea , watch for lymphadenopathy;erosive slightly edematous bronchitis in the right upper lung and to a lesser degree in the left upper lung. Cold agglutinins are negative. QuantiFERON negative. Legionella. bronchosopy results: Cytologies from this was class I and class II, and patient continues to improve with current antibiotic therapy. Bronchial lavage final shows no fungal elements. AFB smear final no acid fast bacilli seen. Sputum culture final: normal teresa. Today 10/28/16 patient chest xray shows improving but persistent infiltrates involving the right upper lobe and middle lobe region with some left perihilar infiltrate present. Blood sugar remains fairly controlled. Patient reports overall feeling better. She will be discharged home today. She will need to follow up with primary care physician. Pulmonary services recommended: When the patient is discharged, patient should continue Ceftin 500 mg twice daily for 10 days as well as Cleocin 300 mg 3 times daily for 10 days. Further discharge instructions to follow per Dr mEerson. Specialty Discharge - Follow Up or Referrals Follow up with: Ari Sandhu MD [Physician] - 2 Weeks Discharge Plan - Discharge Medications New amLODIPine [Norvasc] 5 mg PO DAILY #30 tablet Cefuroxime Tab [Ceftin] 500 mg PO BID #20 tablet Cholecalciferol [Vitamin D3] 2,000 unit PO DAILY #30 tablet Docusate Sodium Cap [Colace Cap] 100 mg PO BID capsule guaiFENesin ER TAB [Mucinex] 600 mg PO BID #20 tablet Lisinopril [Prinivil] 40 mg PO DAILY #30 tablet Magnesium Chloride [Slow Mag] 64 mg PO DAILY #30 tablet Doxycycline Hyclate Cap [Vibramycin Cap] 100 mg PO BID #20 capsule Continue glipiZIDE [Glipizide Xl] 10 mg PO DAILY Simvastatin 20 mg PO BEDTIME Clopidogrel [Plavix] 75 mg PO DAILY Changed Insulin Detemir [Levemir] 15 unit SUBCUT BEDTIME #1 Discontinued Lisinopril 20 mg PO DAILY - Follow Up or Referral - Forms/Instructions Exam - Constitutional Vitals: Period Temp Pulse Resp BP Sys/Blood Pulse Ox Last 24 Hr 97.0 F-97.5 F 72-95 16-20 146-166/80-91 95-99 Discharge Results Procedures and tests throughout hospitalization: Pending Orders 10/21/16 AFB Culture/Smears Stat Fungal Culture w/ Prep Stat 10/25/16 02:17 Fungitell, S IN AM Streptococcus pneumoniae Ag, U IN AM 10/29/16 04:00 BMP [Basic Metabolic Panel] IN AM CBC [Comp Blood Count Auto Diff] IN AM CRP [C-Reactive Protein Inflamm] IN AM 10/30/16 04:00 BMP [Basic Metabolic Panel] IN AM CBC [Comp Blood Count Auto Diff] IN AM CRP [C-Reactive Protein Inflamm] IN AM 10/31/16 04:00 BMP [Basic Metabolic Panel] IN AM CBC [Comp Blood Count Auto Diff] IN AM CRP [C-Reactive Protein Inflamm] IN AM 11/01/16 04:00 BMP [Basic Metabolic Panel] IN AM CBC [Comp Blood Count Auto Diff] IN AM CRP [C-Reactive Protein Inflamm] IN AM Labs on day of discharge: Labs from last 24 hours 10/28/16 10/28/16 10/28/16 07:28 04:40 04:40 WBC RBC Hgb Hct MCV MCH MCHC RDW Plt Count MPV Neut % (Auto) Lymph % (Auto) [place] % (Auto) Eos % (Auto) Baso % (Auto) Neut # (Auto) Lymph # (Auto) [place] # (Auto) Eos # (Auto) Baso # (Auto) Immature Gran % Nucleated RBC % Immature Gran # Nucleated RBCs # Immature Plt Fraction Sodium 142 140 Potassium 4.0 4.0 Chloride 108 H 107 Carbon Dioxide 27 26 Anion Gap 11.0 11.0 BUN 27 H 28 H Creatinine 1.50 H 1.50 H GFR Calculation 37 37 BUN/Creatinine Ratio 18.00 18.00 Glucose 198 H 200 H POC Glucose 236 H Calculated Osmolality 293.1 290.4 Calcium 7.8 L 7.9 L Phosphorus 2.5 Magnesium 1.6 L Total Bilirubin 0.60 AST 21 ALT 46 Alkaline Phosphatase 210 H C-Reactive Protein 6.70 H Total Protein 5.5 L Albumin 1.4 L Globulin 4.1 H Albumin/Globulin Ratio 0.3 L 10/28/16 10/27/16 10/27/16 04:40 20:43 15:47 WBC 11.7 RBC 2.95 L Hgb 8.4 L Hct 26.0 L MCV 88.1 MCH 29 MCHC 32.3 RDW 12.4 Plt Count 561 H MPV 9.8 Neut % (Auto) 76.0 H Lymph % (Auto) 18.1 L [place] % (Auto) 4.3 Eos % (Auto) 0.2 Baso % (Auto) 0.2 Neut # (Auto) 8.9 H Lymph # (Auto) 2.1 [place] # (Auto) 0.5 Eos # (Auto) 0.0 Baso # (Auto) 0.0 Immature Gran % 1.2 Nucleated RBC % 0.0 Immature Gran # 0.14 Nucleated RBCs # 0.00 Immature Plt Fraction 0.0 Sodium Potassium Chloride Carbon Dioxide Anion Gap BUN Creatinine GFR Calculation BUN/Creatinine Ratio Glucose POC Glucose 354 H 260 H Calculated Osmolality Calcium Phosphorus Magnesium Total Bilirubin AST ALT Alkaline Phosphatase C-Reactive Protein Total Protein Albumin Globulin Albumin/Globulin Ratio 10/27/16 12:16 WBC RBC Hgb Hct MCV MCH MCHC RDW Plt Count MPV Neut % (Auto) Lymph % (Auto) [place] % (Auto) Eos % (Auto) Baso % (Auto) Neut # (Auto) Lymph # (Auto) [place] # (Auto) Eos # (Auto) Baso # (Auto) Immature Gran % Nucleated RBC % Immature Gran # Nucleated RBCs # Immature Plt Fraction Sodium Potassium Chloride Carbon Dioxide Anion Gap BUN Creatinine GFR Calculation BUN/Creatinine Ratio Glucose POC Glucose 261 H Calculated Osmolality Calcium Phosphorus Magnesium Total Bilirubin AST ALT Alkaline Phosphatase C-Reactive Protein Total Protein Albumin Globulin Albumin/Globulin Ratio DS: Provider Date of admission: 10/16/16 00:26 Primary care physician: Cuate Birmingham MD Attending physician on admission: Gilbert Dickens MD Consults: 10/16/16 00:26 Consult to Physician [CONS] Routine Comment: lung mass versus pneumonia Consulting Provider: Ari Sandhu Consult to Specialist Group: Pulmonology When should Consulting Provider be notified: In am Person Notified: aware Date Notified: 10/16/16 Time Notified: 11:47 10/20/16 10:08 Consult to Physical Therapy [CONS] Routine Reason for Physical Therapy: Evaluate and Treat 10/24/16 16:20 Consult to Physician [CONS] Routine Comment: Consult for persistent pneumonia Consulting Provider: Jennifer Jansen When should Consulting Provider be notified: In am When should Consulting Provider be notified: In am Person Notified: AWARE Date Notified: 10/24/16 Time Notified: 16:25 10/25/16 16:20 Consult to Pharmacy [CONS] Routine Reason for Pharmacy Consult: Dose/Manage Vancomycin Discharging clinician: Fe Walker NP <Tomasa Emerson - No[place] Filed: 10/28/16 10:29> Hospital Course - Time spent with patient Time with patient DS: Greater than 30 minutes Diagnosis - Discharge Diagnosis (1) Pneumonia Status: Resolved Discharge Plan - Discharge Data Condition at Discharge: Stable Discharge Diet: low salt diet Activity: resume usual activities as tolerated Hygiene: no restrictions Weight Bearing at Discharge: full weight bearing Driving: no restrictions Contact your physician if you experience:: fever over 101, Shortness of breath Exam - Constitutional Exam: General: No Acute Distress HEENT: Normocephalic, atraumatic, Extra ocular movements intact Neck: Supple, No JVD Chest: Clear to auscultation B/L CV: S1 + S2 audible without murmur, gallop or rub Abd: soft, NT, Non-distended, BS + Ext: No edema Skin: No purpura, bruising or rash Rheumatologic: No Joint deformities Neurologic: Strength 5/5 all extremities, no gross sensory deficits
[2016-10-28] MEDS: MEROPENEM 1,000 MG in SODIUM CHLORIDE 0.9% 100 ML IV SCH (10:05)
[2016-10-28] MEDS: DOCUSATE SODIUM 100 MG CAPSULE PO SCH (10:06)
[2016-10-28] MEDS: CLOPIDOGREL 75 MG TABLET PO SCH (10:06)
[2016-10-28] MEDS: CHOLECALCIFEROL 1,000 UNIT TABLET PO SCH (10:06)
[2016-10-28] MEDS: INSULIN REGULAR 100 UNIT/ML SUBCUT SCH ×3 (10:06→16:51)
[2016-10-28] MEDS: PANTOPRAZOLE 40 MG TABLET PO SCH (10:06)
[2016-10-28] MEDS: DOXYCYCLINE HYCLATE 100 MG CAPSULE PO SCH (10:07)
[2016-10-28] MEDS: SIMVASTATIN 20 MG TABLET PO SCH (10:07)
[2016-10-28] MEDS: BENZONATATE 100 MG CAPSULE PO SCH ×2 (10:07→14:30)
[2016-10-28] MEDS: VANCOMYCIN INJ 1,000 MG in SODIUM CHLORIDE 0.9% 250 ML IV SCH (11:34)
[2016-10-28 13:28] VITALS: BP 154/73
[2016-10-28] MEDS ORDERED: CEFUROXIME 500 MG TABLET PO SCH (21:00)
[2016-10-29] MEDS ORDERED: amLODIPine 5 MG TABLET PO SCH (09:00)
[2016-10-29] MEDS ORDERED: LISINOPRIL 20 MG TABLET PO SCH (09:00)
[2016-10-29] MEDS ORDERED: MAGNESIUM CHLORIDE 64 MG TABLET PO SCH (09:00)
[2016-10-29] MEDS ORDERED: predniSONE 10 MG TABLET PO SCH (09:00)
== END 2016-10-28 17:20 | disposition home or self-care (01) | DRG 167 ==
LOC: EDBD → EDUNIT# → N.ED 23:20 → SUATTDRO 10-16 00:26 → N.EDINP 10-16 00:26 → N.5E 10-16 01:21
PROVIDERS: ADMIT Internal Medicine; ATTEND Hospitalist
PROC: BRONCHB (2016-10-21 08:35)

== ENCOUNTER 2016-12-23 13:40 | Inpatient (IN) ==
[2016-12-23 14:18] LABS: Basophils % 0.3 % (0.0-0.8); Eosinophils # 0.5 10*3/uL (0.0-0.87); Eosinophils % 5.1 % (0.00-10.9); Hematocrit 27.7 VOL% (35.7-47.0); Hemoglobin 9.2 GM/DL (12.0-16.0); Immature Granulocytes % 0.7 %; Immature Granulocytes Absolute 0.07 #; Lymphocytes % 20.4 % (21.3-54.2); Mean Corpuscular HGB Conc 33.2 GM/DL (32-36); Mean Corpuscular Hemoglobin 28 PG (27-34); Mean Platelet Volume 9.7 FL (9.6-12.0); Monocytes # 0.7 10*3/uL (0.11-0.8); Monocytes % 7.3 % (1.7-12.7); Neutrophils # 6.6 10*3/uL (1.4-7.4); Neutrophils % 66.2 % (38.7-73.9); Platelet Count 491 T/CUMM (130-400); Red Blood Count 3.26 MC/CUMM (3.8-5.5); Red Cell Distribution Width 13.1 % (9.3-17.3); White Blood Count 9.9 T/CUMM (4-12)
[2016-12-23 14:26] LABS: PT Patient Result 10.6 SECS; Partial Thromboplastin Time 34.1 SECS (0-40)
[2016-12-23 14:34] LABS: Alanine Aminotransferase 24 U/L (13-56); Albumin 2.1 G/DL (3.4-5.0); Alkaline Phosphatase 115 U/L (45-117); Aspartate Amino Transferase 19 U/L (0-37); Bilirubin,Total < 0.39 MG/DL (0.2-1.0); Blood Urea Nitrogen 25 MG/DL (7-18); Calcium 8.4 MG/DL (8.5-10.1); Glucose 232 MG/DL (74-106); Magnesium 1.8 MG/DL (1.8-2.4); Osmolality,Calculated 278.2 MOS/KG (273-304); Potassium 4.4 MMOL/L (3.5-5.1); Sodium 134 MMOL/L (136-145); Total Protein 6.7 G/DL (6.4-8.3)
[2016-12-23] MEDS ORDERED: ACETAMINOPHEN 325 MG TABLET PO PRN (15:54)
[2016-12-23] MEDS ORDERED: GLUCAGON 1 MG VIAL IM PRN (15:54)
[2016-12-23] MEDS ORDERED: DEXTROSE 50% 25 GM/50 ML VIAL IV PRN (15:54)
[2016-12-23] MEDS ORDERED: ONDANSETRON 4 MG/2 ML VIAL IV PRN (15:54)
[2016-12-23] MEDS: methylPREDNISolone SOD SUC 40 MG/1 ML VIAL IV SCH (18:53)
[2016-12-23] MEDS: SODIUM CHLORIDE 0.9% 1,000 ML IV SCH (18:53)
[2016-12-23] MEDS: INSULIN LISPRO 100 UNIT/ML SUBCUT SCH ×2 (18:54→22:40)
[2016-12-23] MEDS: AZITHROMYCIN INJ 500 MG in SODIUM CHLORIDE 0.9% 250 ML IV SCH (18:55)
[2016-12-23] MEDS: ALBUTEROL/IPRATROPIUM 3 ML NEB RESP TX SCH (19:51)
[2016-12-23] MEDS: SIMVASTATIN 20 MG TABLET PO SCH (22:38)
[2016-12-24] MEDS: ALBUTEROL/IPRATROPIUM 3 ML NEB RESP TX SCH ×4 (00:50→19:40)
[2016-12-24] MEDS ORDERED: INSULIN REGULAR 100 UNIT/ML SUBCUT ONE ×2 (04:06→23:55)
[2016-12-24] MEDS: SODIUM CHLORIDE 0.9% 1,000 ML IV SCH ×4 (05:11→16:19)
[2016-12-24] MEDS: methylPREDNISolone SOD SUC 40 MG/1 ML VIAL IV SCH (05:11)
[2016-12-24 05:20] LABS: Basophils % 0.2 % (0.0-0.8); Hematocrit 29.9 VOL% (35.7-47.0); Hemoglobin 9.8 GM/DL (12.0-16.0); Immature Granulocytes % 0.9 %; Immature Granulocytes Absolute 0.08 #; Lymphocytes # 0.6 10*3/uL (1.4-4.0); Lymphocytes % 7.2 % (21.3-54.2); Mean Corpuscular HGB Conc 32.8 GM/DL (32-36); Mean Corpuscular Hemoglobin 28 PG (27-34); Mean Corpuscular Volume 84.2 FL (87-102); Mean Platelet Volume 9.8 FL (9.6-12.0); Monocytes # 0.1 10*3/uL (0.11-0.8); Monocytes % 0.7 % (1.7-12.7); Neutrophils # 8.2 10*3/uL (1.4-7.4); Platelet Count 559 T/CUMM (130-400); Red Blood Count 3.55 MC/CUMM (3.8-5.5)
[2016-12-24 05:45] LABS: Calcium 8.3 MG/DL (8.5-10.1); Osmolality,Calculated 294.7 MOS/KG (273-304); Potassium 4.4 MMOL/L (3.5-5.1)
[2016-12-24 05:52] LABS: Hypochromasia 1+; Lymphocytes 6 % (20-55); Microcytosis Slight; Platelet Estimate Increased; Segmented Neutrophils 93 % (50-85); Total Cells Counted 100
[2016-12-24] MEDS: PANTOPRAZOLE 40 MG TABLET PO SCH (09:35)
[2016-12-24] MEDS: amLODIPine 5 MG TABLET PO SCH (09:35)
[2016-12-24] MEDS: CLOPIDOGREL 75 MG TABLET PO SCH (09:35)
[2016-12-24] MEDS: CHOLECALCIFEROL 1,000 UNIT TABLET PO SCH (09:35)
[2016-12-24] MEDS: INSULIN LISPRO 100 UNIT/ML SUBCUT SCH ×4 (09:35→21:31)
[2016-12-24] MEDS: INSULIN GLARGINE 100 UNIT/ML SUBCUT SCH ×2 (16:18→21:30)
[2016-12-24] MEDS: COLLAGENASE OINT 30 GM TUBE TOP SCH (16:23)
[2016-12-24] MEDS: AZITHROMYCIN INJ 500 MG in SODIUM CHLORIDE 0.9% 250 ML IV SCH (17:37)
[2016-12-24] MEDS: SIMVASTATIN 20 MG TABLET PO SCH (21:30)
[2016-12-24] MEDS ORDERED: GLUCAGON 1 MG VIAL IM PRN (23:52)
[2016-12-24] MEDS ORDERED: DEXTROSE 50% 25 GM/50 ML VIAL IV PRN (23:52)
[2016-12-25] MEDS: ALBUTEROL/IPRATROPIUM 3 ML NEB RESP TX SCH ×4 (00:10→21:18)
[2016-12-25] MEDS ORDERED: INSULIN GLARGINE 100 UNIT/ML SUBCUT ONE ×2 (00:18→00:30)
[2016-12-25] MEDS: INSULIN REGULAR 100 UNIT/ML SUBCUT SCH ×4 (00:21→18:26)
[2016-12-25] MEDS: SODIUM CHLORIDE 0.9% 1,000 ML IV SCH ×3 (00:30→17:17)
[2016-12-25] MEDS: amLODIPine 5 MG TABLET PO SCH (09:18)
[2016-12-25] MEDS: PANTOPRAZOLE 40 MG TABLET PO SCH (09:18)
[2016-12-25] MEDS: CLOPIDOGREL 75 MG TABLET PO SCH (09:18)
[2016-12-25] MEDS: CHOLECALCIFEROL 1,000 UNIT TABLET PO SCH (09:18)
[2016-12-25] MEDS: INSULIN GLARGINE 100 UNIT/ML SUBCUT SCH ×2 (09:18→22:27)
[2016-12-25] MEDS: AZITHROMYCIN INJ 500 MG in SODIUM CHLORIDE 0.9% 250 ML IV SCH (17:14)
[2016-12-25] MEDS: COLLAGENASE OINT 30 GM TUBE TOP SCH (17:15)
[2016-12-25] MEDS: SIMVASTATIN 20 MG TABLET PO SCH (22:28)
[2016-12-26] MEDS: INSULIN REGULAR 100 UNIT/ML SUBCUT SCH ×2 (01:41→06:47)
[2016-12-26] MEDS: ALBUTEROL/IPRATROPIUM 3 ML NEB RESP TX SCH ×4 (01:44→18:53)
[2016-12-26] MEDS: SODIUM CHLORIDE 0.9% 1,000 ML IV SCH (03:01)
[2016-12-26 07:09] LABS: Apearance,Urine CLEAR (Clear); Bilirubin,Urine Negative (Negative); Blood, Urine Negative (Negative); Glucose,Urine (UA) 50 mg/dL (Negative); Ketones,Urine Negative (Negative); Mucus,Urine Occasional /LPF (Occasional); Nitrite,Urine Negative (Negative); Protein,Urine 100 MG/DL; RBC,Urine <1 /HPF (0-4); Squamous Epithelial Cell,Urine Occasional /HPF (0-10); Urine Color Straw (Yellow); Urine Specific Gravity 1.006 (1.001-1.035); Urine Urobilinogen < 2.0 EU/DL (0.2-1.0); WBC,Urine <1 /HPF (0-6)
[2016-12-26] MEDS: CHOLECALCIFEROL 1,000 UNIT TABLET PO SCH (10:39)
[2016-12-26] MEDS: CLOPIDOGREL 75 MG TABLET PO SCH (10:39)
[2016-12-26] MEDS: amLODIPine 5 MG TABLET PO SCH (10:40)
[2016-12-26] MEDS: PANTOPRAZOLE 40 MG TABLET PO SCH (10:40)
[2016-12-26] MEDS: INSULIN GLARGINE 100 UNIT/ML SUBCUT SCH (10:40)
[2016-12-26 16:59] VITALS: BP 147/74
[2016-12-26] MEDS ORDERED: cefTRIAXone 1,000 MG in SYRINGE 1 EACH IV SCH (18:00)
== END 2016-12-26 19:24 | disposition home or self-care (01) | DRG 313 ==
LOC: EDBD → EDUNIT# → N.EDINP 13:40 → N.ED 13:40 → N.TELES 15:41
PROVIDERS: ADMIT Hospitalist; ATTEND Hospitalist

== ENCOUNTER 2017-01-08 13:23 | Inpatient (IN) ==
[2017-01-08] MEDS ORDERED: SODIUM CHLORIDE 0.9% 1,000 ML IV STA (14:20)
[2017-01-08] MEDS ORDERED: PNEUMOCOCCAL VACCINE (23 VALENT) 0.5 ML VIAL IM ONE (16:42)
[2017-01-08] MEDS ORDERED: DOCUSATE SODIUM 100 MG CAPSULE PO PRN (16:48)
[2017-01-08] MEDS ORDERED: DEXTROSE 50% 25 GM/50 ML VIAL IV PRN (16:48)
[2017-01-08] MEDS ORDERED: ONDANSETRON 4 MG/2 ML VIAL IV PRN (16:48)
[2017-01-08] MEDS ORDERED: GLUCAGON 1 MG VIAL IM PRN (16:48)
[2017-01-08] MEDS: SODIUM CHLORIDE 0.9% 1,000 ML IV SCH (17:11)
[2017-01-08] MEDS: ACETAMINOPHEN 325 MG TABLET PO PRN (21:50)
[2017-01-08] MEDS: INSULIN REGULAR 100 UNIT/ML SUBCUT SCH (21:51)
[2017-01-08] MEDS: MORPHINE 2 MG/1 ML SYRINGE IV PRN (23:32)
[2017-01-09 05:23] LABS: Basophils % 0.5 % (0.0-0.8); Eosinophils # 0.5 10*3/uL (0.0-0.87); Eosinophils % 5.8 % (0.00-10.9); Hematocrit 22.1 VOL% (35.7-47.0); Immature Granulocytes % 0.5 %; Immature Granulocytes Absolute 0.04 #; Lymphocytes # 2.3 10*3/uL (1.4-4.0); Mean Corpuscular HGB Conc 31.7 GM/DL (32-36); Mean Corpuscular Hemoglobin 28 PG (27-34); Mean Platelet Volume 9.9 FL (9.6-12.0); Monocytes # 0.6 10*3/uL (0.11-0.8); Monocytes % 7.4 % (1.7-12.7); Neutrophils % 58.8 % (38.7-73.9); Platelet Count 482 T/CUMM (130-400); Red Blood Count 2.54 MC/CUMM (3.8-5.5); Red Cell Distribution Width 13.8 % (9.3-17.3); White Blood Count 8.5 T/CUMM (4-12)
[2017-01-09 05:47] LABS: Calcium 8.1 MG/DL (8.5-10.1); Osmolality,Calculated 290.8 MOS/KG (273-304); Potassium 4.6 MMOL/L (3.5-5.1)
[2017-01-09] MEDS: INSULIN REGULAR 100 UNIT/ML SUBCUT SCH ×4 (08:37→21:33)
[2017-01-09] MEDS: PANTOPRAZOLE 40 MG TABLET PO SCH (09:34)
[2017-01-09] MEDS: ACETAMINOPHEN 325 MG TABLET PO PRN (13:49)
[2017-01-09] MEDS: MORPHINE 2 MG/1 ML SYRINGE IV PRN (15:47)
[2017-01-09] MEDS ORDERED: ERGOCALCIFEROL 50,000 UNIT CAPSULE PO SCH (16:30)
[2017-01-09] MEDS ORDERED: SODIUM CHLORIDE 0.9% 1,000 ML IV PRN (16:34)
[2017-01-09] MEDS: SODIUM CHLORIDE 0.9% 1,000 ML IV SCH (17:06)
[2017-01-09] MEDS: ACETAMINOPHEN 500 MG TABLET PO SCH ×2 (18:17→23:18)
[2017-01-09] MEDS ORDERED: INSULIN GLARGINE 100 UNIT/ML SUBCUT SCH (21:00)
[2017-01-09] MEDS: SIMVASTATIN 20 MG TABLET PO SCH (21:31)
[2017-01-10 01:18] LABS: Hematocrit 26.4 VOL% (35.7-47.0); Hemoglobin 8.4 GM/DL (12.0-16.0)
[2017-01-10] MEDS: MORPHINE 2 MG/1 ML SYRINGE IV PRN ×2 (03:03→17:30)
[2017-01-10] MEDS: ACETAMINOPHEN 500 MG TABLET PO SCH ×4 (05:26→21:01)
[2017-01-10] MEDS: INSULIN REGULAR 100 UNIT/ML SUBCUT SCH ×4 (08:32→21:05)
[2017-01-10] MEDS: PANTOPRAZOLE 40 MG TABLET PO SCH (08:33)
[2017-01-10] MEDS: SODIUM CHLORIDE 0.9% 1,000 ML IV SCH ×2 (08:33→16:12)
[2017-01-10] MEDS: amLODIPine 5 MG TABLET PO SCH (08:33)
[2017-01-10] MEDS: MAGNESIUM CHLORIDE 64 MG TABLET PO SCH (08:33)
[2017-01-10] MEDS ORDERED: INSULIN GLARGINE 100 UNIT/ML SUBCUT SCH (21:00)
[2017-01-10] MEDS: SIMVASTATIN 20 MG TABLET PO SCH (21:02)
[2017-01-11] MEDS: ACETAMINOPHEN 500 MG TABLET PO SCH ×3 (00:11→10:12)
[2017-01-11] MEDS: MORPHINE 2 MG/1 ML SYRINGE IV PRN ×4 (01:17→15:29)
[2017-01-11 02:45] LABS: Basophils # 0.1 10*3/uL (0.0-0.2); Basophils % 0.5 % (0.0-0.8); Eosinophils # 0.5 10*3/uL (0.0-0.87); Eosinophils % 5.2 % (0.00-10.9); Hematocrit 28.7 VOL% (35.7-47.0); Hemoglobin 9.3 GM/DL (12.0-16.0); Immature Granulocytes % 0.4 %; Immature Granulocytes Absolute 0.04 #; Lymphocytes # 2.5 10*3/uL (1.4-4.0); Lymphocytes % 23.7 % (21.3-54.2); Mean Corpuscular HGB Conc 32.4 GM/DL (32-36); Mean Corpuscular Hemoglobin 28 PG (27-34); Mean Corpuscular Volume 85.9 FL (87-102); Monocytes # 0.6 10*3/uL (0.11-0.8); Neutrophils # 6.7 10*3/uL (1.4-7.4); Neutrophils % 64.2 % (38.7-73.9); Platelet Count 574 T/CUMM (130-400); Red Blood Count 3.34 MC/CUMM (3.8-5.5); White Blood Count 10.4 T/CUMM (4-12)
[2017-01-11 03:09] LABS: Calcium 8.2 MG/DL (8.5-10.1); Magnesium 1.5 MG/DL (1.8-2.4); Osmolality,Calculated 282.4 MOS/KG (273-304); Potassium 4.6 MMOL/L (3.5-5.1)
[2017-01-11] MEDS: INSULIN REGULAR 100 UNIT/ML SUBCUT SCH ×2 (08:16→12:02)
[2017-01-11] MEDS: SODIUM CHLORIDE 0.9% 1,000 ML IV SCH ×2 (08:16→12:54)
[2017-01-11] MEDS: amLODIPine 5 MG TABLET PO SCH (08:51)
[2017-01-11] MEDS: MAGNESIUM CHLORIDE 64 MG TABLET PO SCH (08:51)
[2017-01-11] MEDS: PANTOPRAZOLE 40 MG TABLET PO SCH (08:51)
[2017-01-11 12:02] VITALS: BP 158/70
== END 2017-01-11 15:38 | disposition hospice, home (50) | DRG 312 ==
LOC: EDUNIT# → EDBD → N.ED 13:23 → N.EDINP 14:34 → N.4E 16:12
PROVIDERS: ADMIT Hospitalist; ATTEND Hospitalist